=== PATIENT | male | born 1955 | race American Indian/Alaskan Native ===

== ENCOUNTER 2018-05-23 09:06 | Emergency (ER) | payer OTHER ==
--- NOTE | 2018-05-23 09:41 | Emergency Department Report ---
Blank Doc - Documentation Documentation: Patient is a 62-year-old black male who states for the past week he is having epigastric discomfort radiating into the chest. Patient states is present in the daytime much worse at night when he is laying flat. Patient states there is some mild shortness of breath and pain when he takes deep breaths. Patient denies any cough, congestion exertional component. Physical exam patient has some mild epigastric discomfort on palpation lungs clear to auscultation heart tones are within normal limits. EKG has been performed which appears normal chest x-ray and a d-dimer will be ordered since the patient states there is a pleuritic component. Patient be reassessed.
--- NOTE | 2018-05-23 09:54 | Emergency Department Report ---
HPI - General Chief Complaint: Chest Pain Time Seen by Provider: 05/23/18 09:33 - HPI HPI: Patient is a 62-year-old black male who states for the past week he is having epigastric discomfort radiating into the chest. Patient states is present in the daytime much worse at night when he is laying flat. Patient states there is some mild shortness of breath and pain when he takes deep breaths. Patient denies any cough, congestion exertional component. Pain is 6 out of 10 and worse with inspiration. Reports pain as burning and tight. No medication taken for pain. Patient denies any history of DVT or pulmonary embolism. Patient denies any nausea or vomiting. Denies any cough. Denies any recent travel by airplane or car from [facility] in 3 hours. He reports he has hiccups. Denies any back pain. Patient denies any history of heart problems. He did not take any pain medication prior to coming to the hospital. Pain is exacerbated by breathing in and and it is intermittent. Denies any fever or chills. Physical exam patient has some mild epigastric discomfort on palpation lungs clear to auscultation heart tones are within normal limits. EKG has been performed which appears normal chest x-ray and a d-dimer will be ordered since the patient states there is a pleuritic component. Patient be reassessed. ED Past Medical Hx - Past Medical History Previous Medical History?: No Hx Congestive Heart Failure: No Hx Diabetes: No Hx Asthma: No Hx COPD: No - Surgical History Past Surgical History?: No - Family History Family history: hypertension - Social History Smoking Status: Never Smoker Substance Use Type: None - Medications Home Medications: Home Medications Medication Instructions Recorded Confirmed Last Taken Type Warfarin [Coumadin] 7.5 mg PO QDAY #30 tablet 10/17/15 Unknown Rx Pantoprazole [Protonix TAB] 40 mg PO BID #60 tablet 05/23/18 Unknown Rx Sucralfate [Carafate] 1 gm PO ACHS 30 Days tablet 05/23/18 Unknown Rx ED Review of Systems ROS: Stated complaint: CHEST PAIN Other details as noted in HPI Constitutional: denies: chills, fever Eyes: denies: eye pain, eye discharge ENT: other (hiccups). denies: ear pain, throat pain, congestion Respiratory: shortness of breath, SOB with exertion, SOB at rest, other ( positive pickup's). denies: cough, orthopnea, stridor, wheezing Cardiovascular: chest pain (epigastric pain), other (pain with taking a deep breath). denies: palpitations, dyspnea on exertion, orthopnea, edema, syncope, paroxysmal nocturnal dyspnea Gastrointestinal: abdominal pain (epigastric pain radiating into his chest). denies: nausea, vomiting, diarrhea, hematemesis, melena, hematochezia Genitourinary: denies: urgency, dysuria, hematuria Musculoskeletal: denies: back pain, joint swelling, arthralgia, myalgia Skin: denies: rash, lesions Neurological: denies: headache, weakness, numbness, paresthesias, confusion, abnormal gait, vertigo Psychiatric: as per HPI, anxiety Physical Exam - Physical Exam Vital Signs: Vital Signs 05/23/18 09:09 Temperature 98.6 F Pulse Rate 85 Respiratory 18 Rate Blood Pressure 137/85 O2 Sat by Pulse 95 Oximetry General: This is a 62-year-old male well-nourished follow-up in no acute distress. Physical Exam: Head: Normocephalic atraumatic. Scalp examination and normal. Nontender to palpate. No abrasion, contusion or hematoma noted. Mouth: Oral mucosa moist, tongue is normal, uvula is midline, no [employer] or drooling , oral airways patent and uvula is midline. Neck: No breathing or stridor. Supple, no tracheal deviation, no lymphadenopathy and full range of motion Ears: Bilateral TMs pearly mota and bilateral EAC normal exam. Nose: Nasal mucosa without any erythema or swelling or drainage. Bilateral frontal and mastoid sinuses nontender to palpate. Nasal septum normal and nontender to palpate Lungs: Clear to auscultate bilaterally, no rhonchi wheezes or rales. No work of breathing and no use of accessory muscle . No chest wall tenderness Cardiovascular: S1, S2. Regular rate and rhythm. Negative murmur. Capillary refill is less than 3 seconds. Abdomen: Mild tenderness to epigastric area otherwise normal. No bowel sounds throughout abdomen. No guarding or rebound tenderness. Negative Larson's sign. Eyes: Bilateral pupils equal and reactive to light, conjunctival injection or icterus. Bilateral EOM intact and normal accommodation. Lids are normal. She has swelling below her lower lids that is not erythema and nontender to palpate. No induration and no sign of cellulitis. Skin: Clean dry and intact, no rash or lesions. Extremity: No cce. + 2 pulses in all extremities, no neurovascular compromise Mood: Normal mood and behavior ED Course Vital Signs 05/23/18 09:09 Temperature 98.6 F Pulse Rate 85 Respiratory 18 Rate Blood Pressure 137/85 O2 Sat by Pulse 95 Oximetry - Reevaluation(s) Reevaluation #1: 05/23/18 15:33 Patient stable throughout ED stay. 05/25/18 00:04 Reevaluation #2: 05/23/18 15:42 Patient given maalox 30 cc, lidocaine 15cc and pedcid 20 mg po for gastric reflux ED Medical Decision Making - Lab Data Result diagrams: 05/23/18 12:17 Lab Results 05/23/18 05/23/18 Range/Units 10:05 12:17 D-Dimer 2669.20 H (0-234) ng/mlDDU Sodium 138 (137-145) mmol/L Potassium 4.2 (3.6-5.0) mmol/L Chloride 97.0 L (98-107) mmol/L Carbon Dioxide 28 (22-30) mmol/L Anion Gap 17 mmol/L BUN 11 (9-20) mg/dL Creatinine 1.0 (0.8-1.5) mg/dL Estimated GFR > 60 ml/min BUN/Creatinine Ratio 11 % Glucose 150 H (75-100) mg/dL Calcium 9.1 (8.4-10.2) mg/dL Total Bilirubin 0.40 (0.1-1.2) mg/dL AST 29 (5-40) units/L ALT 19 (7-56) units/L Alkaline Phosphatase 40 (35-129) units/L Total Protein 7.7 (6.3-8.2) g/dL Albumin 4.0 (3.9-5) g/dL Albumin/Globulin Ratio 1.1 % - EKG Data -: EKG Interpreted by Me (Dr. Finney) EKG shows normal: sinus rhythm Rate: normal (73 beats per minutes) - EKG Data Interpretation: normal EKG - Radiology Data Radiology results: report reviewed Patient had CTA chest than an chest x-ray two-view which was dictated by radiologist and report reviewed by myself. Please see report for detailed below. Patient: SHAQUILLE HARE MR#: [id number] : 1955 Acct:[id number] Age/Sex: 62 / M ADM Date: 05/23/18 Loc: ED Attending Dr: Ordering Physician: CASPER FINNEY MD Date of Service: 05/23/18 Procedure(s): CT angio chest Accession Number(s): [id number] cc: CASPER FINNEY MD FINAL REPORT EXAM: CT ANGIO CHEST HISTORY: chest pain with elevated ddimer COMPARISON: CT angiograph of the chest performed on 10/06/2015 TECHNIQUE: Multiple contiguous axial images were obtained from the thoracic inlet to the upper abdomen after administration of IV contrast. Reformatted sagittal and coronal images were available for review. FINDINGS: Medical devices: None. Thyroid: Normal. Lymph nodes: No significant mediastinal, hilar, or axillary lymphadenopathy. Vasculature: No filling defect in the pulmonary artery to suggest pulmonary embolism. Normal caliber of the thoracic aorta. Conventional branching pattern of the aortic arch. Heart: Normal heart size. Other mediastinal structures: Moderate hiatal hernia. Lung parenchyma: Minimal dependent atelectasis at the bilateral lung bases. Airways: Patent. No bronchiectasis. Pleura: Small bilateral pleural effusions. Chest wall and spine: No suspicious osseous lesions. No acute fracture or dislocation. Upper Abdomen: Normal. IMPRESSION: 1. No evidence of pulmonary embolism. 2. Small bilateral pleural effusions with associated atelectasis at the bilateral lung bases. 3. Moderate hiatal hernia, unchanged since the previous study. Transcribed By: JANEE Dictated By: PATRICK MARTINEZ MD Electronically Authenticated By: PATRICK MARTINEZ MD Signed Date/Time: 05/23/18 1424 Findings [facility] [address] [place] [address] XRay Report Signed Patient: SHAQUILLE HARE MR#: [id number] : 1955 Acct:[id number] Age/Sex: 62 / M ADM Date: 05/23/18 Loc: ED Attending Dr: Ordering Physician: CASPER FINNEY MD Date of Service: 05/23/18 Procedure(s): XR chest routine 2V Accession Number(s): [id number] cc: CASPER FINNEY MD Fluoro Time In Minutes: FINAL REPORT EXAM: XR CHEST ROUTINE 2V HISTORY: chest and epigastric pain COMPARISON: None. TECHNIQUE: Frontal and lateral views of the chest FINDINGS: The cardiomediastinal silhouette is normal in appearance. There is blunting of the bilateral costophrenic angles. No focal consolidation. No pneumothorax. No acute bony or soft tissue abnormality. IMPRESSION: Blunting of the bilateral costophrenic angles that may represent trace pleural effusions. Transcribed By: JANEE Dictated By: PATRICK MARTINEZ MD Electronically Authenticated By: PATRICK MARTINEZ MD Signed Date/Time: 05/23/181057 DD/ 57 TD/TT: 05/23/181057 DD/ 23 TD/TT: 05/23/181423 - Medical Decision Making This is a 62-year-old male patient was evidenced emergency room report in epigastric pain radiating and not his chest is worse when he lays down at night. He reports a cup with some episodes of shortness of breath with or without exertion. Patient did not report any history of heart disease or acid reflux. He denies any cough, fever or chills. Denies any back pain and denies any history of DVT or PE. Patient is here to be evaluated. I reviewed patient previous chart and patient was seen by attending physician in the emergency room with similar complaints and he had extensive workup to include CT chest which showed no PE. He also had chest x-ray which was stable and on his CTA chest and chest x-rayed showed mild diarrheal hernia. He was seen by GI while in hospital at the time and he had gastric study done and it showed severe acid reflux. Patient was placed on Sulucrate and Protonix but he said he took it for a while and did not take it anymore. Patient also had reflection of chart where he was on Coumadin which she was placed on on 10/17/2015 and in review of his charts. He was admitted in the hospital and had MAHAMED, CTA of the chest, chest x-ray, CTA of the abdomen and pelvis with IV contrast and gastric emptying studies done at this time. 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 Patient was seen by Dr. Lee screen and orders place. Patient had lab work done which were within normal limits to include his BUN and creatinine. D- dimer was elevated therefore patient had CT angios of the chest which showed no evidence of pulmonary embolism, small bilateral pleural effusions with associated atelectasis , bilateral lung bases and moderate hiatal hernia that is unchanged since study from 2015. Chest x-ray was also done and initial blunting of the bilateral costal phrenic angle that may represent trace pleural effusion. CT and x-ray was dictated by radiologist report reviewed by myself. I communicated lab reports and CT next reports patient. I also explained to him that he had a past history of severe acid reflux with hiatal hernia and it placed him on Protonix and another antacid and he did not continue to take this and it seems this why he is having epigastric abdominal discomfort that radiated into his chest. Patient was given Maalox 30 mL and lidocaine 15 mL in emergency room for relief of pain. I discussed findings with Dr. Taylor Finney along with his past admission with similar findings and findings for thrombosis and is aorta and he was treated with Coumadin. Patient is no longer on Coumadin. Physical exam done and patient and please refer to exam section for details. His chest, lung and abdominal exam were normal except he has mild tenderness to abdominal epigastric area. Patient remained stable throughout ED course. Assessment/plan Epigastric abdominal pain radiating to the chest-CTA negative for thrombosis, positive for mild bilateral pleural effusion and moderate hiatal hernia which is chronic. Patient was diagnosed while he was in the hospital in 2014 with severe gastric reflux and was placed on antacid which he stopped taken. CMP is normal and d-dimer was elevated patient worked up for PE and CT of the chest negative for PE but patient was previously on Coumadin for aortic thrombosis. Hiatal hernia with acid reflux-patient started back on Sulucrate and Protonix. He was given lidocaine 15 mL and Maalox 30 mL by mouth which relieved his discomfort. 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 I discussed with him that he needs to continue to take his antacid medication because he has severe gastric reflux which could make him feel like he is having a heart attack and also make him feel shortness of breath. He voiced understanding. Condition discharged home in stable condition with prescription for Sulucrate and Protonix. Vital signs are stable he is afebrile and he said he is feeling better. He knows he needs to follow-up with multiple referrals that was given to him. 1. No evidence of pulmonary embolism. 2. Small bilateral pleural effusions with associated atelectasis at the bilateral lung bases. 3. Moderate hiatal hernia, unchanged since the previous study. Blunting of the bilateral costophrenic angles that may represent trace pleural effusions. - Differential Diagnosis PE, ACS, PNA, mass benign versus malignant, viral infection, GERD Critical care attestation.: If time is entered above; I have spent that time in minutes in the direct care of this critically ill patient, excluding procedure time. ED Disposition Clinical Impression: Hiatal hernia with GERD, Epigastric abdominal pain Disposition: TO HOME OR SELFCARE Is pt being admited?: No Does the pt Need Aspirin: No Condition: Stable Instructions: Hiatal Hernia (ED), Diet for Ulcers and Gastritis (ED), Gastroesophageal Reflux Disease (ED) Additional Instructions: Please follow up with batter mixer as discussed. Follow-up with primary care physician and if he did not have when he can follow- up with [facility] as discussed. Pain medication for acid reflux If his symptoms worsens, please return to emergency room. Prescriptions: Pantoprazole [Protonix TAB] 40 mg PO BID #60 tablet Sucralfate [Carafate] 1 gm PO ACHS 30 Days tablet Referrals: KOLBY NOBLE MD [Primary Care Provider] - 2-3 Days [facility] [Provider Group] - 05/26/18 GRETTA HALEY MD [Staff Physician] - 2-3 Days Forms: Work/School Release Form(ED)
--- NOTE | 2018-05-23 11:03 | XRay Report ---
FINAL REPORT EXAM: XR CHEST ROUTINE 2V HISTORY: chest and epigastric pain COMPARISON: None. TECHNIQUE: Frontal and lateral views of the chest FINDINGS: The cardiomediastinal silhouette is normal in appearance. There is blunting of the bilateral costophrenic angles. No focal consolidation. No pneumothorax. No acute bony or soft tissue abnormality. IMPRESSION: Blunting of the bilateral costophrenic angles that may represent trace pleural effusions.
[2018-05-23 13:24] LABS: Alanine Aminotransferase 19 units/L (7-56); BUN/Creatinine Ratio 11; Blood Urea Nitrogen 11 mg/dL (9-20); Calcium 9.1 mg/dL (8.4-10.2); Hemolysis Index 15
--- NOTE | 2018-05-23 14:30 | Cat Scan Report ---
FINAL REPORT EXAM: CT ANGIO CHEST HISTORY: chest pain with elevated ddimer COMPARISON: CT angiograph of the chest performed on 10/06/2015 TECHNIQUE: Multiple contiguous axial images were obtained from the thoracic inlet to the upper abdomen after administration of IV contrast. Reformatted sagittal and coronal images were available for review. FINDINGS: Medical devices: None. Thyroid: Normal. Lymph nodes: No significant mediastinal, hilar, or axillary lymphadenopathy. Vasculature: No filling defect in the pulmonary artery to suggest pulmonary embolism. Normal caliber of the thoracic aorta. Conventional branching pattern of the aortic arch. Heart: Normal heart size. Other mediastinal structures: Moderate hiatal hernia. Lung parenchyma: Minimal dependent atelectasis at the bilateral lung bases. Airways: Patent. No bronchiectasis. Pleura: Small bilateral pleural effusions. Chest wall and spine: No suspicious osseous lesions. No acute fracture or dislocation. Upper Abdomen: Normal. IMPRESSION: 1. No evidence of pulmonary embolism. 2. Small bilateral pleural effusions with associated atelectasis at the bilateral lung bases. 3. Moderate hiatal hernia, unchanged since the previous study.
[2018-05-23] MEDS ORDERED: PEPCID PO ONE (15:41)
[2018-05-23] MEDS ORDERED: ALUM-MAG HYDROX-SIMETH 200-200-20MG/5ML PO ONE (15:41)
[2018-05-23] MEDS ORDERED: LIDOCAINE VISCOUS 2% PO ONE (15:41)
[2018-05-23 16:03] VITALS: BP 133/93
== END 2018-05-23 16:32 | disposition home or self-care (01) ==
LOC: ED 09:06
DX: K44.9 Diaphragmatic hernia without obstruction or gangrene (principal); K21.9 Gastro-esophageal reflux disease without esophagitis
CPT/HCPCS: 36415; 71046; 71275; 80053; 85379; 93005; 93010; 99284; Q9967

== ENCOUNTER 2019-04-18 08:21 | Inpatient (IN) | payer MEDICARE, OTHER ==
[2019-04-18 09:58] LABS: Basophils % (Auto) 0.2 % (0.0-1.8); Eosinophils % (Auto) 0.1 % (0.0-4.3); Hematocrit 41.1 % (35.5-45.6); Hemoglobin 14.2 gm/dl (11.8-15.2); Lymphocytes # (Auto) 0.6 K/mm3 (1.2-5.4); Lymphocytes % (Auto) 9.8 % (13.4-35.0); Mean Corpuscular HGB Conc 35 % (32-34); Mean Corpuscular Volume 90 fl (84-94); Monocytes # (Auto) 0.6 K/mm3 (0.0-0.8); Monocytes % (Auto) 10.9 % (0.0-7.3); Platelet Count 215 K/mm3 (140-440); Red Blood Count 4.58 M/mm3 (3.65-5.03); Red Cell Distribution Width 13.5 % (13.2-15.2)
[2019-04-18 10:11] LABS: INR 1.06 (0.87-1.13); Partial Thromboplastin Time 26.1 Sec. (24.2-36.6)
[2019-04-18 10:23] LABS: Alanine Aminotransferase 27 units/L (7-56); Albumin 4.5 g/dL (3.9-5); BUN/Creatinine Ratio 16; Blood Urea Nitrogen 22 mg/dL (9-20); Calcium 9.1 mg/dL (8.4-10.2); Hemolysis Index 1
--- NOTE | 2019-04-18 12:02 | Vascular Lab Report ---
PROCEDURE: VL VENOUS DUPLEX LE BILAT TECHNIQUE: Grayscale, color flow and spectral waveform images were obtained of bilateral lower extre mities. HISTORY: pain COMPARISON: None FINDINGS: There is no deep venous thrombosis seen in the left or right lower extremity. Flow is demonstrated by color flow and spectral waveform imaging. There is appropriate wall compression and augmentation. There is also superficial venous thrombus seen. IMPRESSION: There is no evidence for DVT in either right or left lower extremity. This document is electronically signed by Bronwyn Gomez MD., April 18 2019 11:59:48 AM ET
[2019-04-18] MEDS ORDERED: HEPARIN 10,000 UNITS/10 ML IV ONE ×2 (12:07)
[2019-04-18] MEDS ORDERED: BABY ASPIRIN PO ONE (12:09)
--- NOTE | 2019-04-18 12:10 | Emergency Department Report ---
ED Extremity Problem HPI - General Chief complaint: Extremity Injury, Lower Stated complaint: LT SIDE CRAMPING Time Seen by Provider: 04/18/19 08:53 Source: patient Mode of arrival: Ambulatory Limitations: No Limitations - History of Present Illness Initial comments: Patient reports approximately 1 week of episodic leg cramping. Reports today whil eat work he felt numbness in the bottom of his right toes and decided to come in for evaluation. Denies prior. Denies trauma. Denies provocation/palliation. -: Gradual, week(s) (1 approximately) Location: bilateral lower extremity History of Same: No -: Yes myalgia, No fever, No associated dyspnea, No associated chest pain Radiation: none Severity scale (0 -10): 8 Quality: other (cramping) Consistency: intermittent Improves with: nothing Worsens with: nothing Associated Symptoms: myalgias. denies: chest pain, shortness of breath, fever, arthralgias, rash - Related Data Previous Rx's Medication Instructions Recorded Last Taken Type Warfarin [Coumadin] 7.5 mg PO QDAY #30 tablet 10/17/15 Unknown Rx Pantoprazole [Protonix TAB] 40 mg PO BID #60 tablet 05/23/18 Unknown Rx Sucralfate [Carafate] 1 gm PO ACHS 30 Days tablet 05/23/18 Unknown Rx Allergies Allergy/AdvReac Type Severity Reaction Status Date / Time No Known Allergies Allergy Verified 05/23/18 09:09 ED Review of Systems ROS: Stated complaint: LT SIDE CRAMPING Other details as noted in HPI Other: GENERAL: No weight change, fatigue, weakness, fever, chills, or night sweats SKIN: No changes in skin or hair, no itching, no rashes, no jaundice HEAD: No trauma, headache, or visual changes EYES: No blurriness, tearing, itching, acute visual loss, conjunctival discoloration, or scleral icterus EARS: No hearing loss, tinnitus, vertigo, or earache NOSE: No rhinorrhea, stuffiness, sneezing, itching, or epistaxis MOUTH: No bleeding gums, hoarseness, sore throat, or swelling CARDIAC: No new murmur, chest pain, palpitations, dyspnea on exertion, orthopnea, PND, or edema RESPIRATORY: No shortness of breath, wheeze, cough, sputum production, hemoptysis, pneumonia, asthma, bronchitis, or emphysema GI: No change in appetite, nausea, vomiting, dysphagia, change in bowel frequen cy, diarrhea, constipation, bleeding, hematemesis, melena, hematochezia, or abdominal pain URINARY: No frequency, urgency, polyuria, dysuria, hematuria, or incontinence MUSCULOSKELETAL: Bilateral leg cramping. No muscle weakness, joint stiffness, decrease in range of motion, redness, swelling NEUROLOGIC: Numbess bottom of right toes. No tingling, tremors, weakness, paralysis, seizures HEMATOLOGIC: No anemia, easy bruising, bleeding, petechiae, or purpura ENDOCRINE: No hot or cold intolerance, sweating, polyuria, polydipsia or, polyphagia no thyroid problems PSYCHIATRIC: No change in mood, no anxiety, no depression ED Past Medical Hx - Past Medical History Previous Medical History?: No Hx Congestive Heart Failure: No Hx Diabetes: No Hx Asthma: No Hx COPD: No - Surgical History Past Surgical History?: No - Social History Smoking Status: Never Smoker Substance Use Type: Alcohol - Medications Home Medications: Home Medications Medication Instructions Recorded Confirmed Last Taken Type Warfarin [Coumadin] 7.5 mg PO QDAY #30 tablet 10/17/15 Unknown Rx Pantoprazole [Protonix TAB] 40 mg PO BID #60 tablet 05/23/18 Unknown Rx Sucralfate [Carafate] 1 gm PO ACHS 30 Days tablet 05/23/18 Unknown Rx ED Physical Exam - General Limitations: No Limitations - Other Other exam information: GENERAL: Patient in no acute distress HEAD: Normocephalic, atraumatic EYES: PERRLA, EOM intact, no scleral icterus, no papilledema, no conjunctival hemorrhage, visual mchugh and acuity wnl, NOSE: No tenderness, discharge, sinus tenderness MOUTH: No erythema, bleeding, exudate HEART: Regular rate and rhythm, no murmur, S1-S2 are auscultated, pulses minor diminished right PT and DP LUNGS: No wheezing, rales, rhonchi, bilateral breath sounds ABDOMEN: Normal bowel sounds, no tenderness, no rebound, no guarding, no masses, no CVA tenderness MUSCULOSKELETAL: Normal joint range of motion, no redness, no swelling, no tenderness NEUROLOGIC: GCS 15, Alert and Oriented x3, Cranial nerves intact, normal sensation, normal strength, normal gait, no cerebellar deficit, NIHSS 0, GCS 15 PSYCHIATRIC: No homicidal or suicidal ideation, no anxiety, no depression, no hallucinations SKIN: Skin is warm and dry, no wounds, no rashes ED Course Vital Signs 04/18/19 08:28 Temperature 97.9 F Pulse Rate 98 H Respiratory 16 Rate Blood Pressure 115/74 [Right] O2 Sat by Pulse 95 Oximetry ED Medical Decision Making - Lab Data Result diagrams: 04/18/19 09:44 04/18/19 09:44 Laboratory Results - last 24 hr 04/18/19 04/18/19 04/18/19 09:44 09:44 09:44 WBC 5.6 RBC 4.58 Hgb 14.2 Hct 41.1 MCV 90 MCH 31 MCHC 35 H RDW 13.5 Plt Count 215 Lymph % (Auto) 9.8 L [place] % (Auto) 10.9 H Eos % (Auto) 0.1 Baso % (Auto) 0.2 Lymph # 0.6 L [place] # 0.6 Eos # 0.0 Baso # 0.0 Seg Neutrophils % 79.0 H Seg Neutrophils # 4.5 PT 13.5 INR 1.06 APTT 26.1 Sodium 139 Potassium 4.3 Chloride 99.1 Carbon Dioxide 27 Anion Gap 17 BUN 22 H Creatinine 1.4 Estimated GFR > 60 BUN/Creatinine Ratio 16 Glucose 123 H Calcium 9.1 Total Bilirubin 0.50 AST 39 ALT 27 Alkaline Phosphatase 40 Total Creatine Kinase Total Protein 8.4 H Albumin 4.5 Albumin/Globulin Ratio 1.2 04/18/19 09:44 WBC RBC Hgb Hct MCV MCH MCHC RDW Plt Count Lymph % (Auto) [place] % (Auto) Eos % (Auto) Baso % (Auto) Lymph # [place] # Eos # Baso # Seg Neutrophils % Seg Neutrophils # PT INR APTT Sodium Potassium Chloride Carbon Dioxide Anion Gap BUN Creatinine Estimated GFR BUN/Creatinine Ratio Glucose Calcium Total Bilirubin AST ALT Alkaline Phosphatase Total Creatine Kinase 344 H Total Protein Albumin Albumin/Globulin Ratio - Radiology Data Radiology results: report reviewed Radiology call concerning for right popliteal and DP arterial occlusion. At 0019 Dr. Ambrosio vascular surgery call back updated with results. Agrees with heparin gtt. Will come to evaluate. Asked if patient has a hx of A. Fib. Patient comfortable and reports no history of irregular heart beat or A. fib. Reports he has had a hx of leg clots. upon chart review patient had a rx for Coumadin but stopped taking it "a while ago" because he felt better. Dr. Ambrosio agrees with admission to medicine. Dr Cabrera updated and accepts admission. Critical Care Time: Yes Critical care time in (mins) excluding proc time.: 35 Critical care attestation.: If time is entered above; I have spent that time in minutes in the direct care of this critically ill patient, excluding procedure time. ED Disposition Clinical Impression: Arterial occlusion, lower extremity Disposition: [id number] OP ADMIT IP TO THIS HOSP Is pt being admited?: Yes Condition: Serious Referrals: BRENT NICKERSON MD [Primary Care Provider] - 3-5 Days Time of Disposition: 12:38
--- NOTE | 2019-04-18 12:11 | Vascular Lab Report ---
PROCEDURE: VL ARTERIAL DUPLEX LE BILAT TECHNIQUE: Arterial duplex Doppler ultrasound of lower extremities. Grayscale, color flow and spectr al waveform images were obtained. HISTORY: Pain COMPARISON: None FINDINGS: There is arterial patency and triphasic flow from distal external iliac artery to the distal superfic ial femoral artery. There is some nonocclusive thrombus seen in the distal right popliteal artery. Th ere is monophasic flow in right posterior tibial artery and biphasic flow in the anterior tibial edwina ry. The right dorsalis pedis appears occluded. On the left there is phasic flow throughout the left lower extremity. No left-sided arterial thrombus seen. IMPRESSION: There is some nonocclusive thrombus and/or soft plaque in the distal right popliteal edwina ry. There is occlusion of the right dorsalis pedis artery. This document is electronically signed by Bronwyn Gomez MD., April 18 2019 12:10:04 PM ET
--- NOTE | 2019-04-18 12:28 | History and Physical Report ---
History of Present Illness Chief complaint: My leg is tingling, and cramping History of present illness: 63 YO Male with Aortic Thrombus with Renal Embolization noncompliant with therapeutic anticoagulation, GERD presents to ED for evaluation. Pt states that he has experienced numbness and tingling to his right foot today. Pt also reports concomitant weakness, muscle cramping in his right leg and foot, and inability to bear weight on his right leg with worsening symptoms after reclining his leg or dangling his leg off the edge of the bed, and somewhat relieved with standing. Pt transported to [facility] via private vehicle. Pt seen and evaluated in ED and found to have RLE arterial insufficiency with rest pain. Pt denies fever, chills, CP, palpitations, NVD, Trauma, BRBPR, Productive cough, skin rash, or recent ill contacts. Pt initiated on Heparin drip after hypercoagulable panel ordered. Pt admitted to Surgical floor. Prior admission on 10/04/15 reviewed. No medication listed for reconciliation at time of admission. Past History Past Medical History: other (Aortic thrombus with Embolization) Past Surgical History: No surgical history, Other (reviewed) Social history: . denies: alcohol abuse, prescription drug abuse Family history: hypertension Medications and Allergies Allergies Allergy/AdvReac Type Severity Reaction Status Date / Time No Known Allergies Allergy Verified 05/23/18 09:09 Home Medications Medication Instructions Recorded Confirmed Last Taken Type Warfarin [Coumadin] 7.5 mg PO QDAY #30 tablet 10/17/15 Unknown Rx Pantoprazole [Protonix TAB] 40 mg PO BID #60 tablet 05/23/18 Unknown Rx Sucralfate [Carafate] 1 gm PO ACHS 30 Days tablet 05/23/18 Unknown Rx Active Meds: Active Medications Heparin Protocol (Heparin No Bolus) 1 each IV ONCE ONE Stop: 04/18/19 13:01 Heparin Sodium/Sodium Chloride (Heparin/ 0.45% Nacl-25,000 Unit/500 Ml) 25,000 unit in 500 mls @ 18 mls/hr IV TITR TALIA; Protocol Review of Systems Constitutional: no weight loss, no weight gain, no fever, no chills Ears, nose, mouth and throat: no ear pain, no ear discharge, no tinnitis, no decreased hearing, no nose pain Cardiovascular: no chest pain, no orthopnea, no palpitations, no rapid/irregular heart beat, no edema, no syncope Respiratory: no cough, no cough with sputum, no excessive sputum, no hemoptysis, no shortness of breath Gastrointestinal: no abdominal pain, no nausea, no vomiting, no constipation Genitourinary Male: no hematuria, no flank pain, no discharge, no urinary frequency Rectal: no pain, no incontinence, no bleeding Musculoskeletal: no neck stiffness, no neck pain, no shooting arm pain, no arm numbness/tingling, no low back pain, no shooting leg pain Integumentary: no rash, no pruritis, no redness, no sores, no wounds Neurological: no transient paralysis, no paralysis, no weakness, no parathesias, no numbness, no tingling, no seizures, no syncope Psychiatric: no anxiety, no memory loss, no change in sleep habits, no sleep disturbances, no insomnia, no hypersomnia, no change in appetite Endocrine: no cold intolerance, no heat intolerance, no polyphagia, no excessive thirst, no polydipsia, no polyuria Hematologic/Lymphatic: no easy bruising, no easy bleeding, no lymphadenopathy, no lymphedema Allergic/Immunologic: no urticaria, no allergic rhinitis, no wheezing, no persistent infections, no anaphylaxis Exam - Constitutional Vitals: Temp Pulse Resp BP Pulse Ox 97.9 F 98 H 16 115/74 95 04/18/19 08:28 04/18/19 08:28 04/18/19 08:28 04/18/19 08:28 04/18/19 08:28 General appearance: Present: mild distress, well-nourished - EENT Eyes: Present: PERRL ENT: hearing intact, clear oral mucosa - Neck Neck: Present: supple, normal ROM - Respiratory Respiratory effort: normal Respiratory: bilateral: CTA - Cardiovascular Heart Sounds: Present: S1 & S2. Absent: rub, click - Extremities Extremity abnormal: cold, pulses diminished, tenderness, other (RLE ischemia, pulses 1+ RLE, ) Peripheral Pulses: within normal limits - Abdominal General gastrointestinal: Present: soft, non-tender, non-distended, normal bowel sounds Male genitourinary: Present: normal - Integumentary Integumentary: Present: clear, warm, dry - Musculoskeletal Musculoskeletal: gait normal, strength equal bilaterally - Psychiatric Psychiatric: appropriate mood/affect, intact judgment & insight - Neurologic Neurologic: CNII-XII intact, moves all extremities Results - Labs CBC & Chem 7: 04/18/19 09:44 04/18/19 09:44 Labs: Abnormal lab results 04/18/19 04/18/19 04/18/19 Range/Units 09:44 09:44 09:44 MCHC 35 H (32-34) % Lymph % (Auto) 9.8 L (13.4-35.0) % [place] % (Auto) 10.9 H (0.0-7.3) % Lymph # 0.6 L (1.2-5.4) K/mm3 Seg Neutrophils % 79.0 H (40.0-70.0) % BUN 22 H (9-20) mg/dL Glucose 123 H (75-100) mg/dL Total Creatine Kinase 344 H (55-170) units/L Total Protein 8.4 H (6.3-8.2) g/dL Assessment and Plan - Patient Problems (1) Arterial occlusion, lower extremity Current Visit: Yes Status: Acute Plan to address problem: IR consulted in ED, Heprain Drip initiated in ED, Hypercoagulable panel, Pending CTA, May require transfer if obstruction not amenable to therapy as per IR team. 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 Pt discontinued therapeutic anticoagulation on his own without consulting a physician. (3) DVT prophylaxis Current Visit: No Status: Acute Plan to address problem: Therapeutic anticoagulation,
[2019-04-18] MEDS ORDERED: ZOFRAN IV PRN (12:36)
[2019-04-18] MEDS ORDERED: TYLENOL PO PRN (12:36)
[2019-04-18] MEDS ORDERED: SODIUM CHLORIDE FLUSH SYRINGE 10 ML IV PRN (12:36)
[2019-04-18] MEDS ORDERED: PROVENTIL IH PRN (12:36)
[2019-04-18] MEDS ORDERED: HEPARIN/ 0.45% NACL-25,000 UNIT/500 ML 25,000 UNIT/500 ML BAG IV SCH (13:00)
[2019-04-18 13:14] LABS: Hematocrit 40.6 % (35.5-45.6)
[2019-04-18 13:25] LABS: INR 1.02 (0.87-1.13)
[2019-04-18 13:26] LABS: Partial Thromboplastin Time 26.6 Sec. (24.2-36.6)
[2019-04-18] MEDS: PROTONIX PO SCH ×2 (14:19→21:12)
[2019-04-18] MEDS: PERCOCET 5/325 PO PRN (14:19)
--- NOTE | 2019-04-18 14:52 | Cat Scan Report ---
PROCEDURE: CT ANGIO CHEST TECHNIQUE: CT angiography of the chest, abdomen, pelvis with CTA runoff of the lower extremities. HISTORY: aortic thrombus w/ ischemia CTA c/a/p with runoff COMPARISON: None FINDINGS: There is no aortic dissection seen. There is no thoracic aortic thrombus seen. There are no abnormal pulmonary arterial filling defects seen to indicate acute pulmonary emboli. The lungs are clear. There is no pleural effusion seen. There is no pneumothorax seen. There is no abnormal mediastinal or hilar mass seen. Abdominal aorta is normal caliber. There is focal thrombus in the abdominal aorta just distal to MOISÉS origin. This is nonocclusive. The iliac arteries are patent without evidence of thrombus. Aortic branch vessels including celiac trunk/axis, renal arteries and MOISÉS appear patent without visua lized thrombus. The visualized liver, spleen, pancreas, adrenal glands demonstrate no significant abnormality. There is right renal scarring. There is mild left renal scarring. There is no evidence for intestinal obstruction. The appendix is normal. There is no abnormal fluid collection seen. There is no free intraperitoneal air. Bladder is unremarkable. Lower extremity runoff: Right lower extremity-some peripheral nonocclusive thrombus within the right popliteal artery. There is no flow in the right posterior tibial artery distal to the proximal segment. No anterior tibial ar olivia flow seen. Peroneal flow also not seen past the level of the mid calf. Left lower extremity there is a filling defect within the left popliteal artery. There is no signific ant flow seen within calf arteries. IMPRESSION: Focal nonocclusive thrombus in the distal aorta. Right lower extremity demonstrates some nonocclusive thrombus in the popliteal artery. Right anterior tibial artery not visualized and may be occluded. Right posterior tibial artery not visualized past the initial segment and may be occluded. No visualized flow in the right peroneal artery distal to mi d calf. Uncertain whether this is occlusion or related to phase of enhancement. Filling defect in the left popliteal artery is consistent with thrombus. No flow seen into calf arter ies. This suggests distal popliteal arterial occlusion. Findings were discussed with Dr. Marie on 04/18/2019 at 2:40 PM EST. This document is electronically signed by Bronwyn Gomez MD., April 18 2019 02:50:02 PM ET
--- NOTE | 2019-04-18 16:01 | Consultation ---
History of Present Illness - Reason for Consult Consult date: 04/18/19 R ischemia - History of Present Illness 63 YO Male with Aortic Thrombus with Renal Embolization noncompliant with therapeutic anticoagulation, GERD presents to ED for evaluation. Pt states that he has experienced numbness and tingling to his right foot today. Pt also reports concomitant weakness, muscle cramping in his right leg and foot, and inability to bear weight on his right leg with worsening symptoms after reclini ng his leg or dangling his leg off the edge of the bed, and somewhat relieved with standing. Pt transported to [facility] via private vehicle. Pt seen and evaluated in ED and found to have RLE arterial insufficiency with rest pain. Pt denies fever, chills, CP, palpitations, NVD, Trauma, BRBPR, Productive cough, skin rash, or recent ill contacts. Pt initiated on Heparin drip after hypercoagulable panel ordered. Pt admitted to Surgical floor. Prior admission on 10/04/15 reviewed. No medication listed for reconciliation at time of admission. Vascular was consulted for right foot evaluation. Arterial Doppler demonstrates occlusion of the right dorsalis pedis and proximal posterior tibial. There is also some thrombus in his popliteal artery. The left lower extremity is without issue. He has nonpalpable right pedal pulses and probable left dorsalis pedis and posterior tibial artery. CTA was then ordered for history of aortic thrombus demonstrating another thrombus in his distal aorta. Past History Past Medical History: other (Aortic thrombus with Embolization) Past Surgical History: No surgical history, Other (reviewed) Social history: . denies: alcohol abuse, prescription drug abuse Family history: hypertension Medications and Allergies Allergies Allergy/AdvReac Type Severity Reaction Status Date / Time No Known Allergies Allergy Verified 05/23/18 09:09 Home Medications Medication Instructions Recorded Confirmed Last Taken Type Warfarin [Coumadin] 7.5 mg PO QDAY #30 tablet 10/17/15 Unknown Rx Pantoprazole [Protonix TAB] 40 mg PO BID #60 tablet 05/23/18 Unknown Rx Sucralfate [Carafate] 1 gm PO ACHS 30 Days tablet 05/23/18 Unknown Rx Active Meds: Active Medications Acetaminophen (Tylenol) 650 mg PO Q4H PRN PRN Reason: Pain MILD(1-3)/Fever >100.5/CONCEPCION Albuterol (Proventil) 2.5 mg IH Q4H PRN PRN Reason: Shortness Of Breath Heparin Sodium/Sodium Chloride (Heparin/ 0.45% Nacl-25,000 Unit/500 Ml) 25,000 unit in 500 mls @ 18 mls/hr IV TITR TALIA; Protocol Last Admin: 04/18/19 13:00 Dose: 900 units/hr, 18 mls/hr Documented by: Ondansetron HCl (Zofran) 4 mg IV Q8H PRN PRN Reason: Nausea And Vomiting Oxycodone/Acetaminophen (Percocet 5/325) 1 tab PO Q6H PRN PRN Reason: Pain, Moderate (4-6) Last Admin: 04/18/19 14:19 Dose: 1 tab Documented by: Pantoprazole Sodium (Protonix) 40 mg PO BID TALIA Last Admin: 04/18/19 14:19 Dose: Not Given Documented by: Sodium Chloride (Sodium Chloride Flush Syringe 10 Ml) 10 ml IV BID TALIA Sodium Chloride (Sodium Chloride Flush Syringe 10 Ml) 10 ml IV PRN PRN PRN Reason: LINE FLUSH Sucralfate (Carafate) 1 gm PO ACHS [facility] Review of Systems All systems: negative (see HPI) Exam - Constitutional Vitals: Temp Pulse Resp BP Pulse Ox 97.9 F 74 17 124/79 100 04/18/19 08:28 04/18/19 15:45 04/18/19 15:45 04/18/19 15:45 04/18/19 15:45 General appearance: Present: no acute distress - EENT Eyes: Present: EOM intact ENT: hearing intact - Respiratory Respiratory effort: normal - Extremities Extremities: normal color, abnormal (right leg slightly cooler than left, nonpalpable right pedal pulses, palpable left pedal pulses) - Psychiatric Psychiatric: appropriate mood/affect, cooperative Results - Labs CBC & Chem 7: 04/18/19 12:49 04/18/19 09:44 Labs: Abnormal lab results 04/18/19 04/18/19 04/18/19 Range/Units 09:44 09:44 09:44 MCHC 35 H (32-34) % Lymph % (Auto) 9.8 L (13.4-35.0) % [place] % (Auto) 10.9 H (0.0-7.3) % Lymph # 0.6 L (1.2-5.4) K/mm3 Seg Neutrophils % 79.0 H (40.0-70.0) % BUN 22 H (9-20) mg/dL Glucose 123 H (75-100) mg/dL Total Creatine Kinase 344 H (55-170) units/L Total Protein 8.4 H (6.3-8.2) g/dL - Imaging and Cardiology CT scan - abdomen: report reviewed, image reviewed CT scan - chest: report reviewed, image reviewed CT scan - pelvis: report reviewed, image reviewed Venous US: report reviewed, image reviewed Assessment and Plan 63-year-old male with history of aortic thrombus 4 years ago was initiated on anticoagulation but stopped anticoagulation who now presents with a new aortic thrombus with part of it likely embolized down the right lower extremity. The patient's right foot has intermittent pain and numbness, but now the pain and numbness has resolved. Heparin initiated. There is an infrarenal aortic thrombus and right dorsalis pedis thrombus and probably thrombus in the right pr oximal posterior tibial artery. Nothing by mouth after midnight except meds with sips of water. Unfortunately, the aortic thrombus makes thrombolysis of the right lower extremity not possible due to risk of showering. Therefore, plan will be for endovascular aortic exclusion of the aortic thrombus, and popliteal artery right lower extremity open thrombectomy. I suspect there is some component of acute thrombus that has embolized on the right lower extremity, as 4 years ago the patient had palpable pedal pulses. Risks, benefits, and alternatives discussed. Patient will need to be anticoagulated for life afterwards. Cardiology will need to be consulted for risk stratification.
[2019-04-18] MEDS: CARAFATE PO SCH ×2 (16:30→21:12)
--- NOTE | 2019-04-18 17:12 | Consultation ---
History of Present Illness Consult date: 04/18/19 Consult reason: other (Known to have PVD,preop evalaution.) History of present illness: 64-year-old -[place] gentleman was having some numbness in the right foot since this morning and he could not go to work. And also is having cramps in the right leg. Patient was evaluated in the emergency room. Seen by Dr. Ambrosio ,intervention radiologist. Had a CT of the abdomen and ultrasound of the lower extent is were performed. This showed evidence of a thrombus in the aorta along with occluded, thrombotic right infra infrapopliteal vessels. Also was noted to show renal infarction. Patient was started on IV heparin. Patient had history of aortic thrombus in 2014 and was told to take warfarin at that time. Did not have follow-up. Since that time he did not take any medication. Patient does not see any physician in a while. Denies any chest pain or shortness of breath or palpitations. His main complaint was numbness in the right foot and also cramps in the right leg. No symptoms on the left leg. Denies any abdominal pain. Past History Past Medical History: other (Aortic thrombus with Embolization). denies: atrial fib Past Surgical History: No surgical history, Other (reviewed) Social history: , alcohol abuse (drinks one beer a day.), other (patient used to smoke but quit 2 years ago. He smoked less than half pack per day since is 19. 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 denies: prescription drug abuse, IV drug use (denies any drug abuse.) Family history: hypertension Medications and Allergies Allergies Allergy/AdvReac Type Severity Reaction Status Date / Time No Known Allergies Allergy Verified 05/23/18 09:09 Home Medications Medication Instructions Recorded Confirmed Last Taken Type Warfarin [Coumadin] 7.5 mg PO QDAY #30 tablet 10/17/15 Unknown Rx Pantoprazole [Protonix TAB] 40 mg PO BID #60 tablet 05/23/18 Unknown Rx Sucralfate [Carafate] 1 gm PO ACHS 30 Days tablet 05/23/18 Unknown Rx Active Meds: Active Medications Acetaminophen (Tylenol) 650 mg PO Q4H PRN PRN Reason: Pain MILD(1-3)/Fever >100.5/CONCEPCION Albuterol (Proventil) 2.5 mg IH Q4H PRN PRN Reason: Shortness Of Breath Heparin Sodium/Sodium Chloride (Heparin/ 0.45% Nacl-25,000 Unit/500 Ml) 25,000 unit in 500 mls @ 18 mls/hr IV TITR [facility]; Protocol Last Admin: 04/18/19 13:00 Dose: 900 units/hr, 18 mls/hr Documented by: Ondansetron HCl (Zofran) 4 mg IV Q8H PRN PRN Reason: Nausea And Vomiting Oxycodone/Acetaminophen (Percocet 5/325) 1 tab PO Q6H PRN PRN Reason: Pain, Moderate (4-6) Last Admin: 04/18/19 14:19 Dose: 1 tab Documented by: Pantoprazole Sodium (Protonix) 40 mg PO BID [facility] Last Admin: 04/18/19 14:19 Dose: Not Given Documented by: Sodium Chloride (Sodium Chloride Flush Syringe 10 Ml) 10 ml IV BID [facility] Sodium Chloride (Sodium Chloride Flush Syringe 10 Ml) 10 ml IV PRN PRN PRN Reason: LINE FLUSH Sucralfate (Carafate) 1 gm PO ACHS [facility] Review of Systems Constitutional: no weight loss Ears, nose, mouth and throat: no epistaxis Cardiovascular: no chest pain, no orthopnea, no palpitations, no dyspnea on exertion Respiratory: no cough Gastrointestinal: no abdominal pain, no nausea Genitourinary Male: no hematuria Integumentary: no rash Neurological: no head injury, no seizures Endocrine: no cold intolerance Hematologic/Lymphatic: no easy bruising Allergic/Immunologic: no urticaria Physical Examination Vital Signs Temp Pulse Resp BP Pulse Ox 97.9 F 98 H 16 115/74 95 04/18/19 08:28 04/18/19 08:28 04/18/19 08:28 04/18/19 08:28 04/18/19 08:28 General appearance: no acute distress HEENT: Positive: PERRL Neck: Positive: neck supple Cardiac: Positive: Reg Rate and Rhythm, S4. Negative: Audible Murmur Lungs: Positive: clear to auscultation Neuro: Positive: Grossly Intact Abdomen: Positive: Unremarkable Male genitourinary: Positive: deferred Skin: Positive: Clear Extremities: Present: Other (right foot has markedly decreased pulses, left foot>Pedal pulses are well felt.). Absent: edema Results 04/18/19 12:49 04/18/19 09:44 Cardiac Enzymes 04/18/19 Range/Units 09:44 AST 39 (5-40) units/L Coagulation 04/18/19 04/18/19 Range/Units 09:44 12:49 PT 13.5 13.1 (12.2-14.9) Sec. INR 1.06 1.02 (0.87-1.13) APTT 26.1 26.6 (24.2-36.6) Sec. CBC 04/18/19 04/18/19 Range/Units 09:44 12:49 WBC 5.6 (4.5-11.0) K/mm3 RBC 4.58 (3.65-5.03) M/mm3 Hgb 14.2 14.0 (11.8-15.2) gm/dl Hct 41.1 40.6 (35.5-45.6) % Plt Count 215 206 (140-440) K/mm3 Lymph # 0.6 L (1.2-5.4) K/mm3 [place] # 0.6 (0.0-0.8) K/mm3 Eos # 0.0 (0.0-0.4) K/mm3 Baso # 0.0 (0.0-0.1) K/mm3 Comprehensive Metabolic Panel 04/18/19 Range/Units 09:44 Sodium 139 (137-145) mmol/L Potassium 4.3 (3.6-5.0) mmol/L Chloride 99.1 (98-107) mmol/L Carbon Dioxide 27 (22-30) mmol/L BUN 22 H (9-20) mg/dL Creatinine 1.4 (0.8-1.5) mg/dL Glucose 123 H (75-100) mg/dL Calcium 9.1 (8.4-10.2) mg/dL AST 39 (5-40) units/L ALT 27 (7-56) units/L Alkaline Phosphatase 40 (35-129) units/L Total Protein 8.4 H (6.3-8.2) g/dL Albumin 4.5 (3.9-5) g/dL Assessment and Plan Patient admitted with right lower extremity arterial insufficiency with abdominal aortic thrombus and also thrombus in the right lower extremity arteries. Presently is having rest pain. Being managed with IV heparin. He apparently had abdominal aortic thrombus few years ago. Patient denied any cardiac history. Patient is not seeing any physician for a while and not taking any medication. 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 No cardiac symptoms at this point however considering he has significant peripheral vascular disease, would benefit from further evaluation with echocardiogram and pharmacologic stress testing to rule out any underlying coronary disease. Patient apparently has a history of hypertension. Patient's cardiac status appears to be stable. For risk stratification would get about testing. We will check the lipid profile and consider statin. 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
[2019-04-18 18:10] LABS: Chol/HDL Ratio 2.13 %
[2019-04-18] MEDS: SODIUM CHLORIDE FLUSH SYRINGE 10 ML IV SCH (21:13)
[2019-04-19 06:20] LABS: Basophils % (Auto) 0.4 % (0.0-1.8); Eosinophils # (Auto) 0.1 K/mm3 (0.0-0.4); Eosinophils % (Auto) 2.2 % (0.0-4.3); Hematocrit 39.6 % (35.5-45.6); Hemoglobin 13.8 gm/dl (11.8-15.2); Lymphocytes # (Auto) 0.9 K/mm3 (1.2-5.4); Lymphocytes % (Auto) 24.2 % (13.4-35.0); Mean Corpuscular HGB Conc 35 % (32-34); Mean Corpuscular Volume 90 fl (84-94); Monocytes # (Auto) 0.5 K/mm3 (0.0-0.8); Monocytes % (Auto) 11.9 % (0.0-7.3); Platelet Count 188 K/mm3 (140-440); Red Blood Count 4.39 M/mm3 (3.65-5.03); Red Cell Distribution Width 13.4 % (13.2-15.2)
[2019-04-19 06:48] LABS: Alanine Aminotransferase 21 units/L (7-56); BUN/Creatinine Ratio 13; Blood Urea Nitrogen 15 mg/dL (9-20); Calcium 8.8 mg/dL (8.4-10.2); Hemolysis Index 6
[2019-04-19] MEDS ORDERED: LEXISCAN IV ONE (07:02)
[2019-04-19] MEDS: CARAFATE PO SCH ×3 (07:41→21:21)
[2019-04-19 08:00] LABS: Bacteria,Urine 1+ /HPF (Negative); Bilirubin,Urine NEG (Negative); Blood,Urine SM (Negative); Color,Urine Yellow (Yellow); Mucus,Urine FEW /HPF; Urobilinogen,Urine < 2.0 mg/dL (<2.0)
[2019-04-19 08:10] LABS: Amphetamine Screen,Urine PRESUMPTIVE NEGATIVE; Benzodiazepines Screen,Urine PRESUMPTIVE NEGATIVE; Cannabinoid Screen,Urine PRESUMPTIVE NEGATIVE; Cocaine Screen,Urine PRESUMPTIVE NEGATIVE; Methadone Screen,Urine PRESUMPTIVE NEGATIVE; Opiate Screen,Urine PRESUMPTIVE NEGATIVE
[2019-04-19] MEDS ORDERED: NACL 0.9% 500 ML 500 ML IV NR (09:34)
[2019-04-19] MEDS ORDERED: PROTAMINE SULFATE ONE (09:57)
[2019-04-19] MEDS ORDERED: MARCAINE 0.5% INFILTRATI ONE (09:57)
[2019-04-19] MEDS ORDERED: VERSED IV NR (09:57)
[2019-04-19] MEDS ORDERED: HEPARIN 10,000 UNITS/10 ML ONE (09:58)
[2019-04-19] MEDS ORDERED: NACL 0.9% 1000 ML 2,000 ML ONE (09:58)
[2019-04-19] MEDS ORDERED: NACL 0.9% 250ML 250 ML ONE (09:58)
[2019-04-19] MEDS ORDERED: PEPCID IV NR (10:00)
[2019-04-19] MEDS ORDERED: NACL 0.9% 1000 ML 1,000 ML IV SCH ×2 (10:00→19:22)
--- NOTE | 2019-04-19 10:24 | Anesthesia Consultation ---
Anesthesia Consult and Med Hx Date of service: 04/19/19 - Airway Anesthetic Teeth Evaluation: Dentures (upper and lower), Edentulous ROM Head & Neck: Adequate Mental/Hyoid Distance: Adequate Mallampati Class: Class II Intubation Access Assessment: Probably Good - Pre-Operative Health Status ASA Pre-Surgery Classification: ASA3 Proposed Anesthetic Plan: General - Pulmonary Hx Smoking: Yes (Quit 10 years ago, h/o 25 pack/year smoking) Hx Asthma: No COPD: No Hx Pneumonia: No Hx Sleep Apnea: No - Cardiovascular System Hx Hypertension: Yes Hx Peripheral Vascular Disease: Yes (chronic abdominal aortic occusion, right popleteal artelial thrombosis) - Gastrointestinal Hx Gastroesophageal Reflux Disease: Yes - Endocrine Hx End Stage Renal Disease: No
--- NOTE | 2019-04-19 10:26 | Anesthesia Day of Surgery ---
Anesthesia Day of Surgery - Day of Surgery Patient Examined: Yes Patient H&P Reviewed: Yes Patient is NPO: Yes Cardiac Clearance: Yes
[2019-04-19] MEDS ORDERED: XYLOCAINE MPF 2% ONE (10:43)
[2019-04-19] MEDS ORDERED: DIPRIVAN 10 MG/ML IV ONE (10:43)
[2019-04-19] MEDS ORDERED: DILAUDID ONE (10:43)
[2019-04-19] MEDS ORDERED: ZEMURON IV ONE ×3 (10:47→17:06)
[2019-04-19] MEDS ORDERED: DILAUDID IV PRN (11:17)
[2019-04-19] MEDS ORDERED: NACL 0.9% 50 ML ONE (11:22)
[2019-04-19] MEDS ORDERED: NACL 0.9% 100 ML ONE ×2 (11:30→13:17)
--- NOTE | 2019-04-19 11:50 | Event Note ---
Date: 04/19/19 Cardiology was consulted to provide preoperative cardiac risk stratification. Pt has yet to complete cardiac stress testing or echo and thus we are unable to provide a cardiac risk stratification. Per per vascular surgery, pt must urgently undergo contemplated vascular procedure despite lack of cardiac risk stratification. Pt currently appears stable from cardiac perspective. There are no apparent immediate cardiac contraindications to proceeding with vascular procedure at this time. Will follow. Sulma ORTIZ NP / DR. LICONA
[2019-04-19] MEDS ORDERED: K-DUR PO NR (12:00)
[2019-04-19] MEDS ORDERED: ANCEF/STERILE WATER 2 GM/20 ML IV NR (14:00)
[2019-04-19] MEDS ORDERED: NEO SYNEPHRINE/NS Syringe(OR USE) IV ONE (14:37)
[2019-04-19] MEDS ORDERED: NACL 0.9% 1000 ML 1,000 ML ONE (15:07)
[2019-04-19] MEDS ORDERED: HEPARIN 10,000 UNITS/10 ML IV ONE (15:10)
[2019-04-19] MEDS ORDERED: NACL 0.9% IR ONE (15:10)
[2019-04-19] MEDS ORDERED: OMNIPAQUE (240mg) IV ONE (15:10)
--- NOTE | 2019-04-19 16:41 | Event Note ---
Date: 04/19/19 Multiple visit made to evaluate patient, patient not available in the room. Visit to the OR, UNABLE TO SEE PATIENT. Will re-evaluate later tonight or in AM
[2019-04-19] MEDS ORDERED: BLOXIVERZ ONE (17:51)
[2019-04-19] MEDS ORDERED: ROBINUL ONE (17:51)
[2019-04-19] MEDS ORDERED: NEO SYNEPHRINE ONE (17:56)
[2019-04-19] MEDS ORDERED: ZOFRAN ONE (17:59)
[2019-04-19] MEDS ORDERED: DECADRON ONE (17:59)
--- NOTE | 2019-04-19 18:23 | Operative Report ---
Operative Report Operative Report: Date of Procedure: 04/19/2019 Pre-operative Diagnosis: Abdominal Aortic Thrombus With Distal Emboli to Right Lower Extremity Post-operative Diagnosis: Same Procedure(s): 1. Ultrasound-Guided Access Right Common Femoral Artery 2. Ultrasound-Guided Access Left Common Femoral Artery 3. Bilateral Catheters and Aorta 4. Diagnostic Aortogram (No Previous Films for Comparison) 5. Percutaneous Endovascular Repair of Aortic with 25 x 70/ I 16 x 30 Endologix AFX II Bifurcated Device 6. Angioplasty and Stent Left Common Iliac Artery with 14 x 60 EverFlex Self- Expanding Stent Postdilated with a 14 x 40 Curlew Balloon 7. Radiologic Supervision with Interpretation 8. Open Embolectomy of Right Popliteal Artery With a 4 Karla From a Below- Knee Popliteal Approach 9. Open Embolectomy of Right Anterior Tibial Artery with a 3 Karla from a Below-Knee Popliteal Approach 10. Open Embolectomy of Right Peroneal Artery with a 3 Karla from Below-Knee Popliteal Approach Surgeon: Jaya Araujo M.D. Lead Designer: None Anesthesia: Gen. Endotracheal Anesthesia EBL: 400 mL Counts: Correct Complications: None Condition: Stable Findings: Thrombus in the aorta was successfully covered with aortic stent graft. There was minimal backbleeding from the tibial vessels prior to the embolectomy as well as poor antegrade bleeding from the popliteal artery however the backbleeding from the anterior tibial as well as the peroneal artery significantly improved after embolectomy and there was audible antegrade bleeding after embolectomy of the popliteal artery. Specimen: Thrombus from the popliteal artery as well as the tibial vessels was sent to pathology. Indication: The patient is a 63-year-old male with a history of an aortic thrombus who initially presented 4 years ago with a thrombus in the renal arteries including multiple renal infarcts. He was initially maintained on Coumadin and was lost to follow-up. He presented to the emergency department with complaints of numbness and short distance claudication of his right lower extremity. CTA of his abdomen and pelvis with runoff revealed thrombus in the abdominal aorta just above the bifurcation with evidence of multiple emboli to the tibial vessels and popliteal artery on the right lower extremity. Given this multiple plans were discussed however it was felt that the best way to manage this was to exclude the thrombus from flow by placing a abdominal aortic endograft as well as performing an open embolectomy to improve flow to the right lower extremity. This plan as well as alternatives were discussed with the patient who expressed understanding and agreed to proceed with the operation. Description of Procedure: The patient was brought into the operating room and laid in supine position. After general endotracheal anesthesia was achieved he was prepped and draped in normal sterile fashion. Fluoroscopy was used to identify the femoral head on each side and this was marked. I then used ultrasound to identify the right common femoral artery and confirmed patency. Once patency was confirmed an 11 blade was used to make a small stab incision and a hemostat was used to bluntly dissect down to the anterior surface of the right common femoral artery. Micropuncture technique was then used to access the artery under ultrasound guidance and then a 6 Macedonian sheath was placed by Seldinger technique. A Preclose technique was then used to place 2 ProGlide closure devices at the 2:00 and 10 o'clock position in the artery and then an 8 Macedonian sheath was placed by Seldinger technique. This same technique was performed and the left common femoral artery including the pre-close technique and an 8 Macedonian sheath was then placed. At this point I systemically heparinized the patient. A snare catheter was then advanced through the left common femoral artery sheath to just above the bifurcation but ensuring that it was below the thrombus. A vertebral catheter was advanced over the 0.035 Bentson wire in the right common femoral artery and this was exchanged for a 0.035 Lunderquist wire. The 8 Macedonian sheath was then exchanged for a 19 Macedonian AFX to introduce sheath. This was advanced into the distal tip was just at the level of the bifurcation. The 25 x 70 AFX II bifurcated device was then loaded onto the Lunderquist wire and advanced with the contralateral wire up through the 19 Macedonian sheath. The contralateral wire was advanced and snared and then pulled down through the left common femoral a rtery. As the graft was advanced under fluoroscopy the contralateral wire was pulled to ensure that constant tension was kept on the wire. Once this system was advanced and the distal limbs were above the aortic bifurcation, releasing the limbs of the graft from the sheath, the entire system was pulled down on the aorta bifurcation. The control cord was then pulled deploying the main body of the graft. The contralateral limb was deployed by pulling the yellow then cover off of the contralateral wire and then advancing the Omni flush catheter over the contralateral wire until the tip was in contact with wire lock. The Omni Flush catheter was then held in place and the contralateral wire was pulled to release it from the wire lock. The ipsilateral limb was deployed by pinning the inner core and retracting the AFX introducer sheath. Once this was deployed a 0.035 Bentson wire was advanced to the Omni Flush catheter and 12 x 40 balloons were used to post dilate the iliac limbs as well as simultaneously inflated within the body of the graft to ensure with well opposed to the aortic wall. The Omni Flush catheter was then advanced into the aorta above the level of the endograft and aortogram performed. This revealed that the thrombus had been trapped by the endograft however, because of the tortuosity of the left iliac artery, the left limb of the graft ended in a perpendicular fashion with the left common iliac artery. The decision was made to place a 14 x 60 EverFlex self expanding stent to straighten out the limb. This didn't extend from the bifurcation of the body of the graft to the distal left common iliac artery. This was postdilated with a 14 x 40 Curlew. The Omni Flush catheter was reinserted and the final aortogram revealed brisk flow of contrast through the body of the graft as well as through each limb without any flow limiting stenosis or evidence of thrombus or distal emboli. I then reinserted the Bentson wire into the Omni Flush catheter removed. I used the previously placed ProGlide closure devices to close each respective femoral arteriotomy. I then anesthetized each entry site and closed the skin with 4-0 Monocryl in interrupted fashion and dressed with Dermabond. I then turned my attention to the embolectomy. I made a longitudinal incision on the medial aspect of the right calf and used sharp dissection to carry the incision down to the popliteal artery. I identified the anterior tibial artery and tibioperoneal trunk and dissected the popliteal artery circumferentially just proximal to the trifurcation. I controlled the popliteal artery with 2 vessel loops and then made an arteriotomy with an 11 blade and Telles scissors. Upon opening the arteriotomy there was very minimal back bleeding from the tibial vessels. I advanced a 3 Karla into the tibioperoneal trunk and it appeared to go into the peroneal artery. I made several passes pulling back small emboli until the passes were cleaned. At that point there was improved backbleeding. I flushed the artery with heparinized saline and then advanced a 3 Karla into the anterior tibial artery initially had some difficulty passing the Karla but was eventually able to pass the Karla to approximately the 40 cm cat. I made several passes until there was no further evidence of emboli with the pass. At that point there was improved backbleeding. I flushed the artery with heparinized saline and then clamped the popliteal artery just proximal to the trifurcation. I then removed the proximal clamp and although there was pulsatile bleeding was significantly diminished. I advanced a 4 Karla into the proximal popliteal artery and then performed and an embolectomy. Once the balloon was pulled back to the arteriotomy there was such significant arterial inflow that I was unable to retrieve the plug however there was obviously a large embolus restricting flow that now been removed. I flushed the artery with heparinized saline and then closed the arteriotomy with 6-0 Prolenes in an interrupted fashion. Prior to leaving the arteriotomy after last both the inflow and the outflow and then flushed the artery with heparinized saline. I completed the closure of the arteriotomy and released the clamps allow flow into the artery which had a palpable pulse distal to the repair. Hemostasis within the wound was achieved with a combination of direct pressure and Cristian. Once hemostasis was achieved the wound was anesthetized with 0.5% Marcaine and then closed in 2 layers using a 3-0 Vicryl in running fashion in the deep dermal layer and a 4-0 Monocryl a running fashion subcuticular layer and then dressed with Dermabond. The patient tolerated the procedure well. All sponge, needle, and instrument counts were correct. The patient was taken to the recovery area in stable condition.
[2019-04-19] MEDS: PROTONIX PO SCH ×2 (20:07→21:21)
[2019-04-19] MEDS: SODIUM CHLORIDE FLUSH SYRINGE 10 ML IV SCH ×2 (20:07→21:07)
[2019-04-19] MEDS: HEPARIN/ 0.45% NACL-25,000 UNIT/500 ML 25,000 UNIT/500 ML BAG IV SCH (21:00)
[2019-04-19] MEDS: PERCOCET 5/325 PO PRN (21:20)
--- NOTE | 2019-04-19 22:14 | Post Anesthesia Evaluation ---
- Post Anesthesia Evaluation Patient Participated: Yes Airway Patent: Yes Stable Respiratory Function: Yes Nausea/Vomiting: No Temp > 96.8F: Yes Pain Manageable: Yes Adequeate Hydration: Yes Anesthesia Complications: No
[2019-04-20] MEDS ORDERED: NACL 0.9% 1000 ML 1,000 ML IV SCH (00:24)
[2019-04-20] MEDS: PERCOCET 5/325 PO PRN ×2 (02:45→09:25)
[2019-04-20] MEDS: ANCEF/NS 1 GM/50 ML 1 GM/50 ML BAG IV SCH ×2 (03:09→11:06)
[2019-04-20] MEDS ORDERED: ATIVAN IV ONE (03:41)
[2019-04-20 06:18] LABS: Hematocrit 34.9 % (35.5-45.6); Hemoglobin 11.9 gm/dl (11.8-15.2)
[2019-04-20] MEDS: PLAVIX PO SCH (09:25)
[2019-04-20] MEDS: PROTONIX PO SCH ×2 (09:26→22:10)
[2019-04-20] MEDS: SODIUM CHLORIDE FLUSH SYRINGE 10 ML IV SCH ×2 (09:29→22:10)
[2019-04-20] MEDS: CARAFATE PO SCH ×4 (10:58→22:10)
--- NOTE | 2019-04-20 11:22 | Progress Note ---
Assessment and Plan Patient admitted with right lower extremity arterial insufficiency with abdominal aortic thrombus and also thrombus in the right lower extremity arteries. Presently is having rest pain. Being managed with IV heparin. He apparently had abdominal aortic thrombus few years ago. Cardiology was consulted to provide preoperative cardiac risk stratification but pt was taken to OR for urgent vascular surgery prior to stress test or echo. Pt underwent vascular surgery yesterday and appears stable from cardiac perspective. He remains on heparin gtt. Await echo. The patient has been seen in conjunction with Dr. Burkett who agrees with the assessment and plan of care. 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 s/p vascular surgery yesterday. c/o RLE pain r/t surgical site. Objective Last Vital Signs Temp 97.9 F 04/20/19 08:00 Pulse 68 04/20/19 10:00 Resp 13 04/20/19 10:00 BP 124/73 04/20/19 10:00 Pulse Ox 100 04/20/19 10:00 - Physical Examination General: No Apparent Distress HEENT: Positive: PERRL Neck: Positive: neck supple Cardiac: Positive: Reg Rate and Rhythm, S1/S2 Lungs: Positive: Decreased Breath Sounds Neuro: Positive: Grossly Intact Abdomen: Positive: Unremarkable - Labs and Meds CBC 04/20/19 Range/Units 05:15 Hgb 11.9 (11.8-15.2) gm/dl Hct 34.9 L (35.5-45.6) % Plt Count 172 (140-440) K/mm3
--- NOTE | 2019-04-20 14:22 | Progress Note ---
Assessment and Plan Assessment and plan: Patient is a 63 yo man with a history of prior tobacco dependency, GERD and Aortic Thrombus with Renal Embolization on therapeutic anticoagulation who presented to [facility] ED with right leg pains. Patient was non-compliant with anticoagulation per chart. Acute Right leg Limb Ischemia, s/p Open embolectomy on 04/19/2019: continue to treat with Anticoagulation, Vascular Surgeon following Abdominal aorta thrombosis s/p Endovascular repair on 04/19/2019: Vascular surgery is managing. Hypertension: continue anti-hypertensives, low salt diet Hypokalemia: repleted, monitor bmp Drop in HCT: monitor CBC closely DVT prophylaxis: Therapeutic anticoagulation, History Interval history: Patient was seen and examined. Follow-up on current diagnosis of Aortic Abdominal Thrombus. No overnight events reported to me. Patient denies any chest pain, shortness breath, nausea/vomiting or severe headaches. Imaging, nursing note, chart, labs and old chart reviewed. Discussed with patient. Hospitalist Physical - Physical exam Narrative exam: Gen: WDWN, NAD, Awake, Alert, Orientated HEENT: NCAT, EOMI, PERRL, OP Clear Neck: supple, no adenopathy, no thyromegaly, no JVD CVS/Heart: RRR, normal S1S2, pulses abnormal right leg, right foot cool to touch Chest/Lungs: CTA B, Symmetrical chest expansion, good air entry bilaterally GI/Abdomen: soft, NTND, good bowel sounds, no guarding or rebound /Bladder: no suprapubic tenderness, no CVA or paraspinal tenderness Extermity/Skin: no c/c/e, no obvious rash MSK: FROM x 4 Neuro: CN 2-12 grossly intact, no new focal deficits Psych: calm - Constitutional Vitals: Temp Pulse Resp BP Pulse Ox 97.8 F 75 17 128/76 98 04/20/19 12:00 04/20/19 13:00 04/20/19 13:00 04/20/19 13:00 04/20/19 13:00 General appearance: Present: no acute distress Results - Labs CBC & Chem 7: 04/20/19 05:15 04/19/19 06:08 Labs: Laboratory Last Values WBC 3.8 K/mm3 (4.5-11.0) L 04/19/19 06:08 RBC 4.39 M/mm3 (3.65-5.03) 04/19/19 06:08 Hgb 11.9 gm/dl (11.8-15.2) 04/20/19 05:15 Hct 34.9 % (35.5-45.6) L 04/20/19 05:15 MCV 90 fl (84-94) 04/19/19 06:08 MCH 31 pg (28-32) 04/19/19 06:08 MCHC 35 % (32-34) H 04/19/19 06:08 RDW 13.4 % (13.2-15.2) 04/19/19 06:08 Plt Count 172 K/mm3 (140-440) 04/20/19 05:15 Lymph % (Auto) 24.2 % (13.4-35.0) 04/19/19 06:08 [place] % (Auto) 11.9 % (0.0-7.3) H 04/19/19 06:08 Eos % (Auto) 2.2 % (0.0-4.3) 04/19/19 06:08 Baso % (Auto) 0.4 % (0.0-1.8) 04/19/19 06:08 Lymph # 0.9 K/mm3 (1.2-5.4) L 04/19/19 06:08 [place] # 0.5 K/mm3 (0.0-0.8) 04/19/19 06:08 Eos # 0.1 K/mm3 (0.0-0.4) 04/19/19 06:08 Baso # 0.0 K/mm3 (0.0-0.1) 04/19/19 06:08 Seg Neutrophils % 61.3 % (40.0-70.0) 04/19/19 06:08 Seg Neutrophils # 2.3 K/mm3 (1.8-7.7) 04/19/19 06:08 PT 13.1 Sec. (12.2-14.9) 04/18/19 12:49 INR 1.02 (0.87-1.13) 04/18/19 12:49 APTT 26.6 Sec. (24.2-36.6) 04/18/19 12:49 Heparin Anti-Xa Level 0.26 U.I./ml (0.3-0.7) L 04/20/19 09:20 Sodium 137 mmol/L (137-145) 04/19/19 06:08 Potassium 3.3 mmol/L (3.6-5.0) L D 04/19/19 06:08 Chloride 99.6 mmol/L (98-107) 04/19/19 06:08 Carbon Dioxide 25 mmol/L (22-30) 04/19/19 06:08 16 mmol/L 04/19/19 06:08 BUN 15 mg/dL (9-20) 04/19/19 06:08 1.2 mg/dL (0.8-1.5) 04/19/19 06:08 Estimated GFR > 60 ml/min 04/19/19 06:08 13 % 04/19/19 06:08 Glucose 112 mg/dL (75-100) H 04/19/19 06:08 Calcium 8.8 mg/dL (8.4-10.2) 04/19/19 06:08 0.30 mg/dL (0.1-1.2) 04/19/19 06:08 AST 29 units/L (5-40) 04/19/19 06:08 ALT 21 units/L (7-56) 04/19/19 06:08 36 units/L (35-129) 04/19/19 06:08 344 units/L (55-170) H 04/18/19 09:44 7.1 g/dL (6.3-8.2) 04/19/19 06:08 4.0 g/dL (3.9-5) 04/19/19 06:08 1.3 % 04/19/19 06:08 Triglycerides 100 mg/dL (2-149) 04/18/19 09:40 Cholesterol 235 mg/dL (50-199) H 04/18/19 09:40 121 mg/dL (50-130) 04/18/19 09:40 110 mg/dL (40-59) H 04/18/19 09:40 2.13 % 04/18/19 09:40 Yellow (Yellow) 04/19/19 07:30 Slightly-cloudy (Clear) 04/19/19 07:30 5.0 (5.0-7.0) 04/19/19 07:30 Ur Specific [place] 1.033 (1.003-1.030) H 04/19/19 07:30 30 mg/dl mg/dL (Negative) 04/19/19 07:30 Neg mg/dL (Negative) 04/19/19 07:30 Neg mg/dL (Negative) 04/19/19 07:30 Sm (Negative) 04/19/19 07:30 Neg (Negative) 04/19/19 07:30 Neg (Negative) 04/19/19 07:30 < 2.0 mg/dL (<2.0) 04/19/19 07:30 Ur Leukocyte Esterase Neg (Negative) 04/19/19 07:30 1.0 /HPF (0.0-6.0) 04/19/19 07:30 1.0 /HPF (0.0-6.0) 04/19/19 07:30 U Epithel Cells (Auto) < 1.0 /HPF (0-13.0) 04/19/19 07:30 1+ /HPF (Negative) 04/19/19 07:30 Few /HPF 04/19/19 07:30 Presumptive negative 04/19/19 04:48 Presumptive negative 04/19/19 04:48 Ur Barbiturates Screen Presumptive negative 04/19/19 04:48 Ur Phencyclidine Scrn Presumptive negative 04/19/19 04:48 Ur Amphetamines Screen Presumptive negative 04/19/19 04:48 U Benzodiazepines Scrn Presumptive negative 04/19/19 04:48 Presumptive negative 04/19/19 04:48 U Marijuana (THC) Screen Presumptive negative 04/19/19 04:48 Disclamer 04/19/19 04:48 Blood Type A POSITIVE 04/19/19 10:05 Antibody Screen Negative 04/19/19 10:05 Crossmatch See Detail 04/19/19 10:05 Active Medications - Current Medications Current Medications: Generic Name Dose Route Start Last Admin Trade Name Freq PRN Reason Stop Dose Admin Acetaminophen 650 mg 04/18/19 12:36 Tylenol PO Q4H PRN Pain MILD(1-3)/Fever >100.5/CONCEPCION Albuterol 2.5 mg 04/18/19 12:36 Proventil IH Q4H PRN Shortness Of Breath Clopidogrel Bisulfate 75 mg 04/20/19 10:00 04/20/19 09:25 Plavix PO 75 mg QDAY TALIA Administration Heparin Sodium/Sodium Chloride 25,000 unit in 500 mls @ 18 mls/hr 04/19/19 19:22 04/20/19 10:57 Heparin/ 0.45% Nacl-25,000 Unit/500 Ml IV 1,000 units/hr TITRATE TALIA 20 mls/hr Titration Protocol 900 UNITS/HR Ondansetron HCl 4 mg 04/18/19 12:36 Zofran IV Q8H PRN Nausea And Vomiting Oxycodone/Acetaminophen 1 tab 04/18/19 12:36 04/20/19 09:25 Percocet 5/325 PO 1 tab Q6H PRN Administration Pain, Moderate (4-6) Pantoprazole Sodium 40 mg 04/18/19 14:00 04/20/19 09:26 Protonix PO 40 mg BID TALIA Administration Sodium Chloride 10 ml 04/18/19 22:00 04/20/19 09:29 Sodium Chloride Flush Syringe 10 Ml IV 10 ml BID TALIA Administration Sodium Chloride 10 ml 04/18/19 12:36 Sodium Chloride Flush Syringe 10 Ml IV PRN PRN LINE FLUSH Sucralfate 1 gm 04/18/19 16:30 04/20/19 11:02 Carafate PO 1 gm ACHS TALIA Administration
[2019-04-20] MEDS ORDERED: PERCOCET 5/325 PO PRN (14:34)
--- NOTE | 2019-04-20 14:43 | Progress Note ---
Assessment and Plan POD #1 Adjust pain medication to better control pain, add Neurontin for neuropathic pain OOB ambulate with assistance Restart Coumadin Okay to transfer to Med/Surgical Floor, from a surgcial standpoint Subjective Date of service: 04/20/19 Principal diagnosis: PVD Interval history: The patient states his pain is poorly controlled with his current medications. Complaining of incision and right foot pain. States that initially the foot felt somewhat normal but now the first two toes feel numb again. States it feels like lightening in his foot. no other complaints. Objective - Constitutional Vitals: Vital Signs - 12hr 04/20/19 04/20/19 04/20/19 02:45 03:01 03:30 Temperature Pulse Rate 78 63 Pulse Rate [ From Monitor] Respiratory 16 12 12 Rate Respiratory Rate [Bilateral Leg] Blood Pressure 118/71 108/65 O2 Sat by Pulse 98 99 Oximetry 04/20/19 04/20/19 04/20/19 03:38 04:00 04:31 Temperature 98.7 F Pulse Rate 65 58 L Pulse Rate [ 68 From Monitor] Respiratory 13 9 L Rate Respiratory Rate [Bilateral Leg] Blood Pressure 105/74 100/67 O2 Sat by Pulse 98 100 Oximetry 04/20/19 04/20/19 04/20/19 05:01 05:31 06:00 Temperature Pulse Rate 78 58 L 56 L Pulse Rate [ From Monitor] Respiratory 11 L 10 L 14 Rate Respiratory Rate [Bilateral Leg] Blood Pressure 120/48 122/68 123/76 O2 Sat by Pulse 100 100 100 Oximetry 04/20/19 04/20/19 04/20/19 06:31 07:00 08:00 Temperature 97.9 F Pulse Rate 61 56 L Pulse Rate [ 74 From Monitor] Respiratory 11 L 13 17 Rate Respiratory Rate [Bilateral Leg] Blood Pressure 133/72 124/79 O2 Sat by Pulse 99 100 98 Oximetry 04/20/19 04/20/19 04/20/19 08:01 09:01 09:07 Temperature Pulse Rate 60 74 Pulse Rate [ From Monitor] Respiratory 12 19 Rate Respiratory Rate [Bilateral Leg] Blood Pressure 126/75 143/81 O2 Sat by Pulse 97 97 Oximetry 04/20/19 04/20/19 04/20/19 10:00 11:01 12:00 Temperature 97.8 F Pulse Rate 68 85 61 Pulse Rate [ 62 From Monitor] Respiratory 13 17 13 Rate Respiratory 17 Rate [Bilateral Leg] Blood Pressure 124/73 124/73 127/76 O2 Sat by Pulse 100 99 99 Oximetry 04/20/19 04/20/19 13:00 14:00 Temperature Pulse Rate 75 78 Pulse Rate [ From Monitor] Respiratory 17 16 Rate Respiratory Rate [Bilateral Leg] Blood Pressure 128/76 126/72 O2 Sat by Pulse 98 100 Oximetry General appearance: Present: no acute distress - Neck Neck: supple - Respiratory Respiratory effort: normal - Cardiovascular Rhythm: regular Extremities: no ischemia, normal temperature, abnormal (multiphasic doppler signal right PT, incision right calf is clean and intact without signs of hematoma. Bilateral groin entry sites without signs of hematoma.) - Musculoskeletal Musculoskeletal: other (motor intact to right foot) - Neurologic Neurologic: other (sensation intact to right foot) - Labs CBC & Chem 7: 04/20/19 05:15 04/19/19 06:08 Labs: Abnormal lab results 04/19/19 04/19/19 04/20/19 Range/Units 10:05 19:41 02:00 Hct (35.5-45.6) % Heparin Anti-Xa Level < 0.10 L 0.14 L (0.3-0.7) U.I./ml Crossmatch See Detail 04/20/19 04/20/19 Range/Units 05:15 09:20 Hct 34.9 L (35.5-45.6) % Heparin Anti-Xa Level 0.26 L (0.3-0.7) U.I./ml Crossmatch Medications & Allergies - Medications Allergies/Adverse Reactions: Allergies No Known Allergies Allergy (Verified 05/23/18 09:09) Home Medications: Home Medications Medication Instructions Recorded Confirmed Last Taken Type Warfarin [Coumadin] 7.5 mg PO QDAY #30 tablet 10/17/15 Unknown Rx Pantoprazole [Protonix TAB] 40 mg PO BID #60 tablet 05/23/18 Unknown Rx Sucralfate [Carafate] 1 gm PO ACHS 30 Days tablet 05/23/18 Unknown Rx Active Medications: Generic Name Dose Route Start Last Admin Trade Name Freq PRN Reason Stop Dose Admin Acetaminophen 650 mg 04/18/19 12:36 Tylenol PO Q4H PRN Pain MILD(1-3)/Fever >100.5/CONCEPCION Albuterol 2.5 mg 04/18/19 12:36 Proventil IH Q4H PRN Shortness Of Breath Clopidogrel Bisulfate 75 mg 04/20/19 10:00 04/20/19 09:25 Plavix PO 75 mg QDAY TALIA Administration Gabapentin 300 mg 04/20/19 22:00 Neurontin PO Q8HR TALIA Hydromorphone HCl 1 mg 04/20/19 14:34 Dilaudid IV Q4H PRN Pain , Severe (7-10) Heparin Sodium/Sodium Chloride 25,000 unit in 500 mls @ 18 mls/hr 04/19/19 19:22 04/20/19 10:57 Heparin/ 0.45% Nacl-25,000 Unit/500 Ml IV 1,000 units/hr TITRATE TALIA 20 mls/hr Titration Protocol 900 UNITS/HR Ondansetron HCl 4 mg 04/18/19 12:36 Zofran IV Q8H PRN Nausea And Vomiting Oxycodone/Acetaminophen 2 tab 04/20/19 14:34 Percocet 5/325 PO Q6H PRN Pain, Moderate (4-6) Pantoprazole Sodium 40 mg 04/18/19 14:00 04/20/19 09:26 Protonix PO 40 mg BID TALIA Administration Sodium Chloride 10 ml 04/18/19 22:00 04/20/19 09:29 Sodium Chloride Flush Syringe 10 Ml IV 10 ml BID TALIA Administration Sodium Chloride 10 ml 04/18/19 12:36 Sodium Chloride Flush Syringe 10 Ml IV PRN PRN LINE FLUSH Sucralfate 1 gm 04/18/19 16:30 04/20/19 11:02 Carafate PO 1 gm ACHS TALIA Administration Warfarin Sodium 7.5 mg 04/20/19 17:00 Coumadin PO DAILY@1700 [facility] Protocol
[2019-04-20] MEDS: DILAUDID IV PRN (15:55)
[2019-04-20] MEDS: COUMADIN PO SCH (18:45)
[2019-04-20] MEDS: NEURONTIN PO SCH (22:10)
[2019-04-20] MEDS: HEPARIN/ 0.45% NACL-25,000 UNIT/500 ML 25,000 UNIT/500 ML BAG IV SCH (23:09)
[2019-04-21 05:51] LABS: INR 1.16 (0.87-1.13)
[2019-04-21] MEDS: NEURONTIN PO SCH ×3 (06:11→22:00)
[2019-04-21] MEDS: CARAFATE PO SCH ×4 (08:16→22:00)
[2019-04-21] MEDS: DILAUDID IV PRN ×2 (08:27→20:16)
--- NOTE | 2019-04-21 08:48 | Progress Note ---
Assessment and Plan Assessment and plan: Patient is a 63 yo man with a history of prior tobacco dependency, GERD and Aortic Thrombus with Renal Embolization on therapeutic anticoagulation who presented to [facility] ED with right leg pains. Patient was non-compliant with anticoagulation per chart. Acute Right leg Limb Ischemia, s/p Open embolectomy on 04/19/2019: continue to treat with Anticoagulation, Vascular Surgeon following Abdominal aorta thrombosis s/p Endovascular repair on 04/19/2019: Vascular surgery is managing. Hypertension: continue anti-hypertensives, low salt diet Hypokalemia: repleted, monitor bmp Drop in HCT: monitor CBC closely DVT prophylaxis: Therapeutic anticoagulation, Anticipate discharge tomorrow once cleared by Vascular, d/w Dr. Sosa who will let me know History Interval history: Patient was seen and examined. Follow-up on current diagnosis of Aortic Abdominal Thrombus. No overnight events reported to me. Patient denies any chest pain, shortness breath, nausea/vomiting or severe headaches. Imaging, nursing note, chart, labs and old chart reviewed. Discussed with patient. Hospitalist Physical - Physical exam Narrative exam: Gen: WDWN, NAD, Awake, Alert, Orientated HEENT: NCAT, EOMI, PERRL, OP Clear Neck: supple, no adenopathy, no thyromegaly, no JVD CVS/Heart: RRR, normal S1S2, pulses abnormal right leg, right foot now warm to touch Chest/Lungs: CTA B, Symmetrical chest expansion, good air entry bilaterally GI/Abdomen: soft, NTND, good bowel sounds, no guarding or rebound /Bladder: no suprapubic tenderness, no CVA or paraspinal tenderness Extermity/Skin: no c/c/e, no obvious rash MSK: FROM x 4 Neuro: CN 2-12 grossly intact, no new focal deficits Psych: calm - Constitutional Vitals: Temp Pulse Resp BP Pulse Ox 98.8 F 92 H 20 119/68 93 04/21/19 07:48 04/21/19 08:40 04/21/19 08:27 04/21/19 07:48 04/21/19 07:48 General appearance: Present: no acute distress Results - Labs CBC & Chem 7: 04/20/19 05:15 04/19/19 06:08 Labs: Laboratory Last Values WBC 3.8 K/mm3 (4.5-11.0) L 04/19/19 06:08 RBC 4.39 M/mm3 (3.65-5.03) 04/19/19 06:08 Hgb 11.9 gm/dl (11.8-15.2) 04/20/19 05:15 Hct 34.9 % (35.5-45.6) L 04/20/19 05:15 MCV 90 fl (84-94) 04/19/19 06:08 MCH 31 pg (28-32) 04/19/19 06:08 MCHC 35 % (32-34) H 04/19/19 06:08 RDW 13.4 % (13.2-15.2) 04/19/19 06:08 Plt Count 172 K/mm3 (140-440) 04/20/19 05:15 Lymph % (Auto) 24.2 % (13.4-35.0) 04/19/19 06:08 [place] % (Auto) 11.9 % (0.0-7.3) H 04/19/19 06:08 Eos % (Auto) 2.2 % (0.0-4.3) 04/19/19 06:08 Baso % (Auto) 0.4 % (0.0-1.8) 04/19/19 06:08 Lymph # 0.9 K/mm3 (1.2-5.4) L 04/19/19 06:08 [place] # 0.5 K/mm3 (0.0-0.8) 04/19/19 06:08 Eos # 0.1 K/mm3 (0.0-0.4) 04/19/19 06:08 Baso # 0.0 K/mm3 (0.0-0.1) 04/19/19 06:08 Seg Neutrophils % 61.3 % (40.0-70.0) 04/19/19 06:08 Seg Neutrophils # 2.3 K/mm3 (1.8-7.7) 04/19/19 06:08 PT 14.5 Sec. (12.2-14.9) 04/21/19 04:18 INR 1.16 (0.87-1.13) H 04/21/19 04:18 APTT 26.6 Sec. (24.2-36.6) 04/18/19 12:49 Antithrombin III Ag 103 % (80-120) 04/18/19 12:56 Heparin Anti-Xa Level 0.45 U.I./ml (0.3-0.7) 04/20/19 21:29 Sodium 137 mmol/L (137-145) 04/19/19 06:08 Potassium 3.3 mmol/L (3.6-5.0) L D 04/19/19 06:08 Chloride 99.6 mmol/L (98-107) 04/19/19 06:08 Carbon Dioxide 25 mmol/L (22-30) 04/19/19 06:08 16 mmol/L 04/19/19 06:08 BUN 15 mg/dL (9-20) 04/19/19 06:08 1.2 mg/dL (0.8-1.5) 04/19/19 06:08 Estimated GFR > 60 ml/min 04/19/19 06:08 13 % 04/19/19 06:08 Glucose 112 mg/dL (75-100) H 04/19/19 06:08 Calcium 8.8 mg/dL (8.4-10.2) 04/19/19 06:08 0.30 mg/dL (0.1-1.2) 04/19/19 06:08 AST 29 units/L (5-40) 04/19/19 06:08 ALT 21 units/L (7-56) 04/19/19 06:08 36 units/L (35-129) 04/19/19 06:08 344 units/L (55-170) H 04/18/19 09:44 7.1 g/dL (6.3-8.2) 04/19/19 06:08 4.0 g/dL (3.9-5) 04/19/19 06:08 1.3 % 04/19/19 06:08 Triglycerides 100 mg/dL (2-149) 04/18/19 09:40 Cholesterol 235 mg/dL (50-199) H 04/18/19 09:40 121 mg/dL (50-130) 04/18/19 09:40 110 mg/dL (40-59) H 04/18/19 09:40 2.13 % 04/18/19 09:40 Yellow (Yellow) 04/19/19 07:30 Slightly-cloudy (Clear) 04/19/19 07:30 5.0 (5.0-7.0) 04/19/19 07:30 Ur Specific [place] 1.033 (1.003-1.030) H 04/19/19 07:30 30 mg/dl mg/dL (Negative) 04/19/19 07:30 Neg mg/dL (Negative) 04/19/19 07:30 Neg mg/dL (Negative) 04/19/19 07:30 Sm (Negative) 04/19/19 07:30 Neg (Negative) 04/19/19 07:30 Neg (Negative) 04/19/19 07:30 < 2.0 mg/dL (<2.0) 04/19/19 07:30 Ur Leukocyte Esterase Neg (Negative) 04/19/19 07:30 1.0 /HPF (0.0-6.0) 04/19/19 07:30 1.0 /HPF (0.0-6.0) 04/19/19 07:30 U Epithel Cells (Auto) < 1.0 /HPF (0-13.0) 04/19/19 07:30 1+ /HPF (Negative) 04/19/19 07:30 Few /HPF 04/19/19 07:30 Presumptive negative 04/19/19 04:48 Presumptive negative 04/19/19 04:48 Ur Barbiturates Screen Presumptive negative 04/19/19 04:48 Ur Phencyclidine Scrn Presumptive negative 04/19/19 04:48 Ur Amphetamines Screen Presumptive negative 04/19/19 04:48 U Benzodiazepines Scrn Presumptive negative 04/19/19 04:48 Presumptive negative 04/19/19 04:48 U Marijuana (THC) Screen Presumptive negative 04/19/19 04:48 Disclamer 04/19/19 04:48 Blood Type A POSITIVE 04/19/19 10:05 Antibody Screen Negative 04/19/19 10:05 Crossmatch See Detail 04/19/19 10:05 Active Medications - Current Medications Current Medications: Generic Name Dose Route Start Last Admin Trade Name Freq PRN Reason Stop Dose Admin Acetaminophen 650 mg 04/18/19 12:36 Tylenol PO Q4H PRN Pain MILD(1-3)/Fever >100.5/CONCEPCION Albuterol 2.5 mg 04/18/19 12:36 Proventil IH Q4H PRN Shortness Of Breath Clopidogrel Bisulfate 75 mg 04/20/19 10:00 04/20/19 09:25 Plavix PO 75 mg QDAY TALIA Administration Gabapentin 300 mg 04/20/19 22:00 04/21/19 06:11 Neurontin PO 300 mg Q8HR TALIA Administration Hydromorphone HCl 1 mg 04/20/19 14:34 04/21/19 08:27 Dilaudid IV 1 mg Q4H PRN Administration Pain , Severe (7-10) Heparin Sodium/Sodium Chloride 25,000 unit in 500 mls @ 18 mls/hr 04/19/19 19:22 04/20/19 23:09 Heparin/ 0.45% Nacl-25,000 Unit/500 Ml IV 1,000 units/hr TITRATE TALIA 20 mls/hr Administration Protocol 900 UNITS/HR Ondansetron HCl 4 mg 04/18/19 12:36 Zofran IV Q8H PRN Nausea And Vomiting Oxycodone/Acetaminophen 2 tab 04/20/19 14:34 Percocet 5/325 PO Q6H PRN Pain, Moderate (4-6) Pantoprazole Sodium 40 mg 04/18/19 14:00 04/20/19 22:10 Protonix PO 40 mg BID TALIA Administration Sodium Chloride 10 ml 04/18/19 22:00 04/20/19 22:10 Sodium Chloride Flush Syringe 10 Ml IV 10 ml BID TALIA Administration Sodium Chloride 10 ml 04/18/19 12:36 Sodium Chloride Flush Syringe 10 Ml IV PRN PRN LINE FLUSH Sucralfate 1 gm 04/18/19 16:30 04/21/19 08:16 Carafate PO 1 gm ACHS TALIA Administration Warfarin Sodium 7.5 mg 04/20/19 17:00 04/20/19 18:45 Coumadin PO 7.5 mg DAILY@1700 TALIA Administration Protocol
[2019-04-21] MEDS: PLAVIX PO SCH (11:07)
[2019-04-21] MEDS: PROTONIX PO SCH ×2 (11:08→22:00)
[2019-04-21] MEDS: SODIUM CHLORIDE FLUSH SYRINGE 10 ML IV SCH ×2 (11:09→22:01)
--- NOTE | 2019-04-21 11:30 | Progress Note ---
Assessment and Plan Patient admitted with right lower extremity arterial insufficiency with abdominal aortic thrombus and also thrombus in the right lower extremity arteries. Presently is having rest pain. Being managed with IV heparin. He apparently had abdominal aortic thrombus few years ago. Cardiology was consulted to provide preoperative cardiac risk stratification but pt was taken to OR for urgent vascular surgery prior to stress test or echo. Pt underwent vascular surgery yesterday and appears stable from cardiac perspective. He remains on heparin gtt. Echo reviewed - EF 50-55%, right to left shunt c/w patent foramen ovale demonstrated by bubble study, no significant valvular abnormalities. Currently stable cardiac status. Can consider stress test as OP. Nothing further to add from cardiac perspective at this time. Will sign off. Recommend pt follow up in our office with Dr. Schmitt within 1-2 weeks of hospital discharge ([phone]). The patient has been seen in conjunction with Dr. Burkett who agrees with the assessment and plan of care. 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 Objective Last Vital Signs Temp 98.8 F 04/21/19 07:48 Pulse 92 H 04/21/19 08:40 Resp 20 04/21/19 08:27 BP 119/68 04/21/19 07:48 Pulse Ox 98 04/21/19 08:50 - Physical Examination General: No Apparent Distress HEENT: Positive: PERRL Neck: Positive: neck supple Cardiac: Positive: Reg Rate and Rhythm, S1/S2 Lungs: Positive: Decreased Breath Sounds Neuro: Positive: Grossly Intact Abdomen: Positive: Unremarkable Skin: Positive: Clear Extremities: Present: Other (right foot has markedly decreased pulses, left foot>Pedal pulses are well felt.). Absent: edema - Labs and Meds Coagulation 04/21/19 Range/Units 04:18 PT 14.5 (12.2-14.9) Sec. INR 1.16 H (0.87-1.13)
[2019-04-21 13:24] LABS: Protein S, Free 132 % normal (57-171); Protein S, Total 117 % normal (70-140)
--- NOTE | 2019-04-21 14:11 | Progress Note ---
Assessment and Plan Pt OOB with assistance Subjective Date of service: 04/21/19 Principal diagnosis: PVD Interval history: Patient complaining of minimal swelling to the right lower extremity. Additionally, the tingling those occurring in the first 2 toes on the right foot is improving. The patient has been ambulating with assistance. His right dorsalis pedis and posterior tibial arteries are not easily palpable. No complaints of pain in the foot. Objective - Constitutional Vitals: Vital Signs - 12hr 04/21/19 04/21/19 04/21/19 04:16 07:48 08:27 Temperature 99.2 F 98.8 F Pulse Rate 81 91 H Respiratory 16 16 20 Rate Blood Pressure 130/83 119/68 O2 Sat by Pulse 97 93 Oximetry 04/21/19 04/21/19 04/21/19 08:40 08:50 11:56 Temperature 98.8 F Pulse Rate 92 H 78 Respiratory 16 Rate Blood Pressure 106/68 O2 Sat by Pulse 98 96 Oximetry General appearance: Present: no acute distress - EENT Eyes: EOM intact ENT: hearing intact - Neck Neck: supple, normal ROM - Respiratory Respiratory effort: normal Extremities: abnormal - Gastrointestinal General gastrointestinal: Present: deferred - Genitourinary Male genitourinary: deferred - Psychiatric Psychiatric: cooperative - Labs CBC & Chem 7: 04/22/19 03:54 04/19/19 06:08 Labs: Abnormal lab results 04/21/19 Range/Units 04:18 INR 1.16 H (0.87-1.13) Medications & Allergies - Medications Allergies/Adverse Reactions: Allergies No Known Allergies Allergy (Verified 05/23/18 09:09) Home Medications: Home Medications Medication Instructions Recorded Confirmed Last Taken Type Pantoprazole [Protonix TAB] 40 mg PO BID #60 tablet 05/23/18 04/20/19 Unknown Rx Sucralfate [Carafate] 1 gm PO ACHS 30 Days tablet 05/23/18 04/20/19 Unknown Rx Active Medications: Generic Name Dose Route Start Last Admin Trade Name Freq PRN Reason Stop Dose Admin Acetaminophen 650 mg 04/18/19 12:36 Tylenol PO Q4H PRN Pain MILD(1-3)/Fever >100.5/CONCEPCION Albuterol 2.5 mg 04/18/19 12:36 Proventil IH Q4H PRN Shortness Of Breath Clopidogrel Bisulfate 75 mg 04/20/19 10:00 04/21/19 11:07 Plavix PO 75 mg QDAY TALIA Administration Gabapentin 300 mg 04/20/19 22:00 04/21/19 13:52 Neurontin PO 300 mg Q8HR TALIA Administration Hydromorphone HCl 1 mg 04/20/19 14:34 04/21/19 08:27 Dilaudid IV 1 mg Q4H PRN Administration Pain , Severe (7-10) Heparin Sodium/Sodium Chloride 25,000 unit in 500 mls @ 18 mls/hr 04/19/19 19:22 04/20/19 23:09 Heparin/ 0.45% Nacl-25,000 Unit/500 Ml IV 1,000 units/hr TITRATE TALIA 20 mls/hr Administration Protocol 900 UNITS/HR Ondansetron HCl 4 mg 04/18/19 12:36 Zofran IV Q8H PRN Nausea And Vomiting Oxycodone/Acetaminophen 2 tab 04/20/19 14:34 Percocet 5/325 PO Q6H PRN Pain, Moderate (4-6) Pantoprazole Sodium 40 mg 04/18/19 14:00 04/21/19 11:08 Protonix PO 40 mg BID TALIA Administration Sodium Chloride 10 ml 04/18/19 22:00 04/21/19 11:09 Sodium Chloride Flush Syringe 10 Ml IV 10 ml BID TALIA Administration Sodium Chloride 10 ml 04/18/19 12:36 Sodium Chloride Flush Syringe 10 Ml IV PRN PRN LINE FLUSH Sucralfate 1 gm 04/18/19 16:30 04/21/19 11:08 Carafate PO 1 gm ACHS TALIA Administration Warfarin Sodium 7.5 mg 04/20/19 17:00 04/20/19 18:45 Coumadin PO 7.5 mg DAILY@1700 TALIA Administration Protocol
[2019-04-21] MEDS: COUMADIN PO SCH (20:09)
[2019-04-22] MEDS: HEPARIN/ 0.45% NACL-25,000 UNIT/500 ML 25,000 UNIT/500 ML BAG IV SCH ×2 (01:27→22:00)
[2019-04-22] MEDS: NEURONTIN PO SCH ×3 (05:33→22:00)
[2019-04-22 05:49] LABS: Hematocrit 32.9 % (35.5-45.6); Hemoglobin 11.3 gm/dl (11.8-15.2)
[2019-04-22 05:59] LABS: INR 1.24 (0.87-1.13)
[2019-04-22] MEDS: DILAUDID IV PRN ×3 (06:37→22:06)
[2019-04-22] MEDS: SODIUM CHLORIDE FLUSH SYRINGE 10 ML IV SCH ×2 (10:06→23:29)
[2019-04-22] MEDS: PLAVIX PO SCH (10:06)
[2019-04-22] MEDS: CARAFATE PO SCH ×4 (10:06→22:00)
[2019-04-22] MEDS: PROTONIX PO SCH ×2 (10:06→21:59)
--- NOTE | 2019-04-22 11:59 | Progress Note ---
Assessment and Plan Right foot well perfused. Able to discharge when INR 2-3. Subjective Date of service: 04/22/19 Principal diagnosis: PVD Interval history: No new complaints. Ambulating with some soreness at the incision. States he only has mild numbness/tingling at the tip of his first an second toes on the right. Objective - Constitutional Vitals: Vital Signs - 12hr 04/22/19 04/22/19 04/22/19 03:54 07:19 08:00 Temperature 98.7 F 99.0 F Pulse Rate 90 84 90 Respiratory 18 16 Rate Blood Pressure 111/69 108/71 O2 Sat by Pulse 97 95 Oximetry General appearance: Present: no acute distress Extremities: normal temperature, abnormal (incision intact without evidence of infection) Extremity abnormal: other (Right PT doppler but nonpalpable) - Labs CBC & Chem 7: 04/22/19 03:54 04/19/19 06:08 Labs: Abnormal lab results 04/19/19 04/22/19 04/22/19 Range/Units 10:05 03:54 03:54 Hgb 11.3 L (11.8-15.2) gm/dl Hct 32.9 L (35.5-45.6) % PT 15.3 H (12.2-14.9) Sec. INR 1.24 H (0.87-1.13) Crossmatch See Detail Medications & Allergies - Medications Allergies/Adverse Reactions: Allergies No Known Allergies Allergy (Verified 05/23/18 09:09) Home Medications: Home Medications Medication Instructions Recorded Confirmed Last Taken Type Pantoprazole [Protonix TAB] 40 mg PO BID #60 tablet 05/23/18 04/20/19 Unknown Rx Sucralfate [Carafate] 1 gm PO ACHS 30 Days tablet 05/23/18 04/20/19 Unknown Rx Active Medications: Generic Name Dose Route Start Last Admin Trade Name Freq PRN Reason Stop Dose Admin Acetaminophen 650 mg 04/18/19 12:36 Tylenol PO Q4H PRN Pain MILD(1-3)/Fever >100.5/CONCEPCION Albuterol 2.5 mg 04/18/19 12:36 Proventil IH Q4H PRN Shortness Of Breath Clopidogrel Bisulfate 75 mg 04/20/19 10:00 04/22/19 10:06 Plavix PO 75 mg QDAY TALIA Administration Gabapentin 300 mg 04/20/19 22:00 04/22/19 05:33 Neurontin PO 300 mg Q8HR TALIA Administration Hydromorphone HCl 1 mg 04/20/19 14:34 04/22/19 06:37 Dilaudid IV 1 mg Q4H PRN Administration Pain , Severe (7-10) Heparin Sodium/Sodium Chloride 25,000 unit in 500 mls @ 18 mls/hr 04/19/19 19:22 04/22/19 01:27 Heparin/ 0.45% Nacl-25,000 Unit/500 Ml IV 1,000 units/hr TITRATE TALIA 20 mls/hr Administration Protocol 900 UNITS/HR Ondansetron HCl 4 mg 04/18/19 12:36 Zofran IV Q8H PRN Nausea And Vomiting Oxycodone/Acetaminophen 2 tab 04/20/19 14:34 Percocet 5/325 PO Q6H PRN Pain, Moderate (4-6) Pantoprazole Sodium 40 mg 04/18/19 14:00 04/22/19 10:06 Protonix PO 40 mg BID TALIA Administration Sodium Chloride 10 ml 04/18/19 22:00 04/22/19 10:06 Sodium Chloride Flush Syringe 10 Ml IV 10 ml BID TALIA Administration Sodium Chloride 10 ml 04/18/19 12:36 04/21/19 20:18 Sodium Chloride Flush Syringe 10 Ml IV 10 ml PRN PRN Administration LINE FLUSH Sucralfate 1 gm 04/18/19 16:30 04/22/19 10:06 Carafate PO 1 gm ACHS TALIA Administration Warfarin Sodium 7.5 mg 04/20/19 17:00 04/21/19 20:09 Coumadin PO Not Given DAILY@1700 [facility] Protocol
--- NOTE | 2019-04-22 13:10 | Progress Note ---
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 Patient was non-compliant with anticoagulation per chart. Acute Right leg Limb Ischemia, s/p Open embolectomy on 04/19/2019: continue to treat with Anticoagulation, Vascular Surgeon following Abdominal aorta thrombosis s/p Endovascular repair on 04/19/2019: Vascular surgery is managing. Hypertension: continue anti-hypertensives, low salt diet Hypokalemia: repleted, monitor bmp Drop in HCT: monitor CBC closely DVT prophylaxis: Therapeutic anticoagulation, Anticipate discharge once INR is therapeutic, continue to regulated heparin IV drip and warfarin/INR History Interval history: Patient was seen and examined. Follow-up on current diagnosis of Aortic Abdominal Thrombus. No overnight events reported to me. Patient denies any chest pain, shortness breath, nausea/vomiting or severe headaches. Imaging, nursing no te, chart, labs and old chart reviewed. Discussed with patient. Hospitalist Physical - Physical exam Narrative exam: Gen: WDWN, NAD, Awake, Alert, Orientated HEENT: NCAT, EOMI, PERRL, OP Clear Neck: supple, no adenopathy, no thyromegaly, no JVD CVS/Heart: RRR, normal S1S2, pulses abnormal right leg, right foot now warm to touch Chest/Lungs: CTA B, Symmetrical chest expansion, good air entry bilaterally GI/Abdomen: soft, NTND, good bowel sounds, no guarding or rebound /Bladder: no suprapubic tenderness, no CVA or paraspinal tenderness Extermity/Skin: no c/c/e, no obvious rash MSK: FROM x 4 Neuro: CN 2-12 grossly intact, no new focal deficits Psych: calm - Constitutional Vitals: Temp Pulse Resp BP Pulse Ox 99.0 F 90 16 108/71 95 04/22/19 07:19 04/22/19 08:00 04/22/19 07:19 04/22/19 07:19 04/22/19 07:19 General appearance: Present: no acute distress Results - Labs CBC & Chem 7: 04/22/19 03:54 04/19/19 06:08 Labs: Laboratory Last Values WBC 3.8 K/mm3 (4.5-11.0) L 04/19/19 06:08 RBC 4.39 M/mm3 (3.65-5.03) 04/19/19 06:08 Hgb 11.3 gm/dl (11.8-15.2) L 04/22/19 03:54 Hct 32.9 % (35.5-45.6) L 04/22/19 03:54 MCV 90 fl (84-94) 04/19/19 06:08 MCH 31 pg (28-32) 04/19/19 06:08 MCHC 35 % (32-34) H 04/19/19 06:08 RDW 13.4 % (13.2-15.2) 04/19/19 06:08 Plt Count 192 K/mm3 (140-440) 04/22/19 03:54 Lymph % (Auto) 24.2 % (13.4-35.0) 04/19/19 06:08 [place] % (Auto) 11.9 % (0.0-7.3) H 04/19/19 06:08 Eos % (Auto) 2.2 % (0.0-4.3) 04/19/19 06:08 Baso % (Auto) 0.4 % (0.0-1.8) 04/19/19 06:08 Lymph # 0.9 K/mm3 (1.2-5.4) L 04/19/19 06:08 [place] # 0.5 K/mm3 (0.0-0.8) 04/19/19 06:08 Eos # 0.1 K/mm3 (0.0-0.4) 04/19/19 06:08 Baso # 0.0 K/mm3 (0.0-0.1) 04/19/19 06:08 Seg Neutrophils % 61.3 % (40.0-70.0) 04/19/19 06:08 Seg Neutrophils # 2.3 K/mm3 (1.8-7.7) 04/19/19 06:08 PT 15.3 Sec. (12.2-14.9) H 04/22/19 03:54 INR 1.24 (0.87-1.13) H 04/22/19 03:54 APTT 26.6 Sec. (24.2-36.6) 04/18/19 12:49 132 % normal (57-171) 04/18/19 12:56 117 % normal (70-140) 04/18/19 12:56 Antithrombin III Ag 103 % (80-120) 04/18/19 12:56 Heparin Anti-Xa Level 0.35 U.I./ml (0.3-0.7) 04/21/19 20:35 Sodium 137 mmol/L (137-145) 04/19/19 06:08 Potassium 3.3 mmol/L (3.6-5.0) L D 04/19/19 06:08 Chloride 99.6 mmol/L (98-107) 04/19/19 06:08 Carbon Dioxide 25 mmol/L (22-30) 04/19/19 06:08 16 mmol/L 04/19/19 06:08 BUN 15 mg/dL (9-20) 04/19/19 06:08 1.2 mg/dL (0.8-1.5) 04/19/19 06:08 Estimated GFR > 60 ml/min 04/19/19 06:08 13 % 04/19/19 06:08 Glucose 112 mg/dL (75-100) H 04/19/19 06:08 Calcium 8.8 mg/dL (8.4-10.2) 04/19/19 06:08 0.30 mg/dL (0.1-1.2) 04/19/19 06:08 AST 29 units/L (5-40) 04/19/19 06:08 ALT 21 units/L (7-56) 04/19/19 06:08 36 units/L (35-129) 04/19/19 06:08 344 units/L (55-170) H 04/18/19 09:44 7.1 g/dL (6.3-8.2) 04/19/19 06:08 4.0 g/dL (3.9-5) 04/19/19 06:08 1.3 % 04/19/19 06:08 Triglycerides 100 mg/dL (2-149) 04/18/19 09:40 Cholesterol 235 mg/dL (50-199) H 04/18/19 09:40 121 mg/dL (50-130) 04/18/19 09:40 110 mg/dL (40-59) H 04/18/19 09:40 2.13 % 04/18/19 09:40 Yellow (Yellow) 04/19/19 07:30 Slightly-cloudy (Clear) 04/19/19 07:30 5.0 (5.0-7.0) 04/19/19 07:30 Ur Specific [place] 1.033 (1.003-1.030) H 04/19/19 07:30 30 mg/dl mg/dL (Negative) 04/19/19 07:30 Neg mg/dL (Negative) 04/19/19 07:30 Neg mg/dL (Negative) 04/19/19 07:30 Sm (Negative) 04/19/19 07:30 Neg (Negative) 04/19/19 07:30 Neg (Negative) 04/19/19 07:30 < 2.0 mg/dL (<2.0) 04/19/19 07:30 Ur Leukocyte Esterase Neg (Negative) 04/19/19 07:30 1.0 /HPF (0.0-6.0) 04/19/19 07:30 1.0 /HPF (0.0-6.0) 04/19/19 07:30 U Epithel Cells (Auto) < 1.0 /HPF (0-13.0) 04/19/19 07:30 1+ /HPF (Negative) 04/19/19 07:30 Few /HPF 04/19/19 07:30 Presumptive negative 04/19/19 04:48 Presumptive negative 04/19/19 04:48 Ur Barbiturates Screen Presumptive negative 04/19/19 04:48 Ur Phencyclidine Scrn Presumptive negative 04/19/19 04:48 Ur Amphetamines Screen Presumptive negative 04/19/19 04:48 U Benzodiazepines Scrn Presumptive negative 04/19/19 04:48 Presumptive negative 04/19/19 04:48 U Marijuana (THC) Screen Presumptive negative 04/19/19 04:48 Disclamer 04/19/19 04:48 Blood Type A POSITIVE 04/19/19 10:05 Antibody Screen Negative 04/19/19 10:05 Crossmatch See Detail 04/19/19 10:05 Active Medications - Current Medications Current Medications: Generic Name Dose Route Start Last Admin Trade Name Freq PRN Reason Stop Dose Admin Acetaminophen 650 mg 04/18/19 12:36 Tylenol PO Q4H PRN Pain MILD(1-3)/Fever >100.5/CONCEPCION Albuterol 2.5 mg 04/18/19 12:36 Proventil IH Q4H PRN Shortness Of Breath Clopidogrel Bisulfate 75 mg 04/20/19 10:00 04/22/19 10:06 Plavix PO 75 mg QDAY TALIA Administration Gabapentin 300 mg 04/20/19 22:00 04/22/19 05:33 Neurontin PO 300 mg Q8HR TALIA Administration Hydromorphone HCl 1 mg 04/20/19 14:34 04/22/19 06:37 Dilaudid IV 1 mg Q4H PRN Administration Pain , Severe (7-10) Heparin Sodium/Sodium Chloride 25,000 unit in 500 mls @ 18 mls/hr 04/19/19 19:22 04/22/19 01:27 Heparin/ 0.45% Nacl-25,000 Unit/500 Ml IV 1,000 units/hr TITRATE TALIA 20 mls/hr Administration Protocol 900 UNITS/HR Ondansetron HCl 4 mg 04/18/19 12:36 Zofran IV Q8H PRN Nausea And Vomiting Oxycodone/Acetaminophen 2 tab 04/20/19 14:34 Percocet 5/325 PO Q6H PRN Pain, Moderate (4-6) Pantoprazole Sodium 40 mg 04/18/19 14:00 04/22/19 10:06 Protonix PO 40 mg BID TALIA Administration Sodium Chloride 10 ml 04/18/19 22:00 04/22/19 10:06 Sodium Chloride Flush Syringe 10 Ml IV 10 ml BID TALIA Administration Sodium Chloride 10 ml 04/18/19 12:36 04/21/19 20:18 Sodium Chloride Flush Syringe 10 Ml IV 10 ml PRN PRN Administration LINE FLUSH Sucralfate 1 gm 04/18/19 16:30 04/22/19 10:06 Carafate PO 1 gm ACHS TALIA Administration Warfarin Sodium 7.5 mg 04/20/19 17:00 04/21/19 20:09 Coumadin PO Not Given DAILY@1700 [facility] Protocol Nutrition/Malnutrition Assess - Dietary Evaluation Nutrition/Malnutrition Findings: Nutrition Notes Start: 04/21/19 16:11 Freq: Status: Active Protocol: Document 04/21/19 16:11 RM (Rec: 04/21/19 16:14 RM [id number]) Nutrition Notes Need for Assessment generated from: Education Initial or Follow up Assessment Other Pertinent Diagnosis GERD, Abdominal aotra thrombosis Subjective/Other Information Screened for Coumadin/Vit K diet education. Reviewed Coumadin/Vit K diet education. Gave handout. #1 Nutrition Diagnosis Food and nutrition-related knowledge deficit Etiology lack of prior education As Evidenced by Signs and Symptoms no prior knowledge of need for food and nutrition recommendations Nutrition Intervention Teaching Recipient Patient Learning Readiness Good Teaching Methods Discussion,Handout Response to Teaching Verbalize understanding Education Handouts Provided Vitamin K and medications Barriers to Learning No Barriers RD phone number provided Yes Patient aware of follow up options Yes Goal #1 Adhere to diet Revisit per MD consult or patient Sign Off request:
[2019-04-22] MEDS: COUMADIN PO SCH (16:34)
[2019-04-23] MEDS: NEURONTIN PO SCH ×4 (04:52→21:46)
[2019-04-23] MEDS: DILAUDID IV PRN ×3 (04:52→21:55)
[2019-04-23 05:36] LABS: INR 1.57 (0.87-1.13)
--- NOTE | 2019-04-23 08:39 | Progress Note ---
Assessment and Plan Discharge when INR therapeutic. Patient will need also to ambulate with physical therapy during his hospitalization. Subjective Date of service: 04/23/19 Principal diagnosis: PVD Interval history: Patient doing well. Still complaining of some pain at the MTP of the first 2 digits on the right foot. Objective - Constitutional Vitals: Vital Signs - 12hr 04/22/19 04/22/19 04/23/19 22:00 23:48 04:40 Temperature 98.2 F 98.2 F Pulse Rate 86 74 Respiratory 18 20 20 Rate Blood Pressure 121/79 113/83 O2 Sat by Pulse 96 93 Oximetry 04/23/19 07:56 Temperature 97.4 F L Pulse Rate 79 Respiratory 18 Rate Blood Pressure 110/72 O2 Sat by Pulse 96 Oximetry General appearance: Present: no acute distress - EENT Eyes: PERRL ENT: hearing intact - Neck Neck: supple, normal ROM - Respiratory Respiratory effort: normal - Breasts Breasts: deferred Extremities: abnormal - Gastrointestinal General gastrointestinal: Present: deferred Rectal Exam: deferred - Genitourinary Male genitourinary: deferred - Psychiatric Psychiatric: appropriate mood/affect, cooperative - Labs CBC & Chem 7: 04/22/19 03:54 04/19/19 06:08 Labs: Abnormal lab results 04/23/19 Range/Units 03:56 PT 18.4 H (12.2-14.9) Sec. INR 1.57 H (0.87-1.13) Medications & Allergies - Medications Allergies/Adverse Reactions: Allergies No Known Allergies Allergy (Verified 05/23/18 09:09) Home Medications: Home Medications Medication Instructions Recorded Confirmed Last Taken Type Pantoprazole [Protonix TAB] 40 mg PO BID #60 tablet 05/23/18 04/20/19 Unknown Rx Sucralfate [Carafate] 1 gm PO ACHS 30 Days tablet 05/23/18 04/20/19 Unknown Rx Active Medications: Generic Name Dose Route Start Last Admin Trade Name Freq PRN Reason Stop Dose Admin Acetaminophen 650 mg 04/18/19 12:36 Tylenol PO Q4H PRN Pain MILD(1-3)/Fever >100.5/CONCEPCION Albuterol 2.5 mg 04/18/19 12:36 Proventil IH Q4H PRN Shortness Of Breath Clopidogrel Bisulfate 75 mg 04/20/19 10:00 04/22/19 10:06 Plavix PO 75 mg QDAY TALIA Administration Gabapentin 300 mg 04/20/19 22:00 04/23/19 06:39 Neurontin PO Not Given Q8HR TALIA Hydromorphone HCl 1 mg 04/20/19 14:34 04/23/19 04:52 Dilaudid IV 1 mg Q4H PRN Administration Pain , Severe (7-10) Heparin Sodium/Sodium Chloride 25,000 unit in 500 mls @ 18 mls/hr 04/19/19 19:22 04/22/19 22:00 Heparin/ 0.45% Nacl-25,000 Unit/500 Ml IV 1,000 units/hr TITRATE TALIA 20 mls/hr Administration Protocol 900 UNITS/HR Ondansetron HCl 4 mg 04/18/19 12:36 Zofran IV Q8H PRN Nausea And Vomiting Oxycodone/Acetaminophen 2 tab 04/20/19 14:34 Percocet 5/325 PO Q6H PRN Pain, Moderate (4-6) Pantoprazole Sodium 40 mg 04/18/19 14:00 04/22/19 21:59 Protonix PO 40 mg BID TALIA Administration Sodium Chloride 10 ml 04/18/19 22:00 04/22/19 23:29 Sodium Chloride Flush Syringe 10 Ml IV Not Given BID TALIA Sodium Chloride 10 ml 04/18/19 12:36 04/21/19 20:18 Sodium Chloride Flush Syringe 10 Ml IV 10 ml PRN PRN Administration LINE FLUSH Sucralfate 1 gm 04/18/19 16:30 04/22/19 22:00 Carafate PO 1 gm ACHS TALIA Administration Warfarin Sodium 7.5 mg 04/20/19 17:00 04/22/19 16:34 Coumadin PO 7.5 mg DAILY@1700 TALIA Administration Protocol
[2019-04-23] MEDS: CARAFATE PO SCH ×4 (08:43→21:45)
[2019-04-23] MEDS: PLAVIX PO SCH (09:31)
[2019-04-23] MEDS: PROTONIX PO SCH ×2 (09:31→21:46)
[2019-04-23] MEDS: SODIUM CHLORIDE FLUSH SYRINGE 10 ML IV SCH ×2 (09:31→21:46)
--- NOTE | 2019-04-23 14:39 | Progress Note ---
Assessment and Plan Assessment and plan: Patient is a 63 yo man with a history of prior tobacco dependency, GERD and Aortic Thrombus with Renal Embolization on therapeutic anticoagulation who presented to [facility] with right leg pains. Patient was non-compliant with anticoagulation per chart. Acute Right leg Limb Ischemia, s/p Open embolectomy on 04/19/2019: continue to treat with Anticoagulation, Vascular Surgeon following Abdominal aorta thrombosis s/p Endovascular repair on 04/19/2019: Vascular surgery is managing. Hypertension: continue anti-hypertensives, low salt diet Hypokalemia: repleted, monitor bmp Drop in HCT: monitor CBC closely DVT prophylaxis: Therapeutic anticoagulation, Anticipate discharge once INR is therapeutic, continue to regulated heparin IV drip and warfarin/INR History Interval history: Patient was seen and examined. Follow-up on current diagnosis of Aortic Abdominal Thrombus. No overnight events reported to me. Patient denies any chest pain, shortness breath, nausea/vomiting or severe headaches. Imaging, nursing no te, chart, labs and old chart reviewed. Discussed with patient. Hospitalist Physical - Physical exam Narrative exam: Gen: WDWN, NAD, Awake, Alert, Orientated HEENT: NCAT, EOMI, PERRL, OP Clear Neck: supple, no adenopathy, no thyromegaly, no JVD CVS/Heart: RRR, normal S1S2, pulses abnormal right leg, right foot now warm to touch Chest/Lungs: CTA B, Symmetrical chest expansion, good air entry bilaterally GI/Abdomen: soft, NTND, good bowel sounds, no guarding or rebound /Bladder: no suprapubic tenderness, no CVA or paraspinal tenderness Extermity/Skin: no c/c/e, no obvious rash MSK: FROM x 4 Neuro: CN 2-12 grossly intact, no new focal deficits Psych: calm - Constitutional Vitals: Temp Pulse Resp BP Pulse Ox 98.4 F 81 18 112/74 97 04/23/19 11:49 04/23/19 11:49 04/23/19 11:49 04/23/19 11:49 04/23/19 11:49 General appearance: Present: no acute distress Results - Labs CBC & Chem 7: 04/22/19 03:54 04/19/19 06:08 Labs: Laboratory Last Values WBC 3.8 K/mm3 (4.5-11.0) L 04/19/19 06:08 RBC 4.39 M/mm3 (3.65-5.03) 04/19/19 06:08 Hgb 11.3 gm/dl (11.8-15.2) L 04/22/19 03:54 Hct 32.9 % (35.5-45.6) L 04/22/19 03:54 MCV 90 fl (84-94) 04/19/19 06:08 MCH 31 pg (28-32) 04/19/19 06:08 MCHC 35 % (32-34) H 04/19/19 06:08 RDW 13.4 % (13.2-15.2) 04/19/19 06:08 Plt Count 192 K/mm3 (140-440) 04/22/19 03:54 Lymph % (Auto) 24.2 % (13.4-35.0) 04/19/19 06:08 [place] % (Auto) 11.9 % (0.0-7.3) H 04/19/19 06:08 Eos % (Auto) 2.2 % (0.0-4.3) 04/19/19 06:08 Baso % (Auto) 0.4 % (0.0-1.8) 04/19/19 06:08 Lymph # 0.9 K/mm3 (1.2-5.4) L 04/19/19 06:08 [place] # 0.5 K/mm3 (0.0-0.8) 04/19/19 06:08 Eos # 0.1 K/mm3 (0.0-0.4) 04/19/19 06:08 Baso # 0.0 K/mm3 (0.0-0.1) 04/19/19 06:08 Seg Neutrophils % 61.3 % (40.0-70.0) 04/19/19 06:08 Seg Neutrophils # 2.3 K/mm3 (1.8-7.7) 04/19/19 06:08 PT 18.4 Sec. (12.2-14.9) H 04/23/19 03:56 INR 1.57 (0.87-1.13) H 04/23/19 03:56 APTT 26.6 Sec. (24.2-36.6) 04/18/19 12:49 113 % (70-140) 04/18/19 12:56 132 % normal (57-171) 04/18/19 12:56 117 % normal (70-140) 04/18/19 12:56 Antithrombin III Ag 103 % (80-120) 04/18/19 12:56 Heparin Anti-Xa Level 0.32 U.I./ml (0.3-0.7) 04/22/19 20:27 Sodium 137 mmol/L (137-145) 04/19/19 06:08 Potassium 3.3 mmol/L (3.6-5.0) L D 04/19/19 06:08 Chloride 99.6 mmol/L (98-107) 04/19/19 06:08 Carbon Dioxide 25 mmol/L (22-30) 04/19/19 06:08 16 mmol/L 04/19/19 06:08 BUN 15 mg/dL (9-20) 04/19/19 06:08 1.2 mg/dL (0.8-1.5) 04/19/19 06:08 Estimated GFR > 60 ml/min 04/19/19 06:08 13 % 04/19/19 06:08 Glucose 112 mg/dL (75-100) H 04/19/19 06:08 Calcium 8.8 mg/dL (8.4-10.2) 04/19/19 06:08 0.30 mg/dL (0.1-1.2) 04/19/19 06:08 AST 29 units/L (5-40) 04/19/19 06:08 ALT 21 units/L (7-56) 04/19/19 06:08 36 units/L (35-129) 04/19/19 06:08 344 units/L (55-170) H 04/18/19 09:44 7.1 g/dL (6.3-8.2) 04/19/19 06:08 4.0 g/dL (3.9-5) 04/19/19 06:08 1.3 % 04/19/19 06:08 Triglycerides 100 mg/dL (2-149) 04/18/19 09:40 Cholesterol 235 mg/dL (50-199) H 04/18/19 09:40 121 mg/dL (50-130) 04/18/19 09:40 110 mg/dL (40-59) H 04/18/19 09:40 2.13 % 04/18/19 09:40 Yellow (Yellow) 04/19/19 07:30 Slightly-cloudy (Clear) 04/19/19 07:30 5.0 (5.0-7.0) 04/19/19 07:30 Ur Specific [place] 1.033 (1.003-1.030) H 04/19/19 07:30 30 mg/dl mg/dL (Negative) 04/19/19 07:30 Neg mg/dL (Negative) 04/19/19 07:30 Neg mg/dL (Negative) 04/19/19 07:30 Sm (Negative) 04/19/19 07:30 Neg (Negative) 04/19/19 07:30 Neg (Negative) 04/19/19 07:30 < 2.0 mg/dL (<2.0) 04/19/19 07:30 Ur Leukocyte Esterase Neg (Negative) 04/19/19 07:30 1.0 /HPF (0.0-6.0) 04/19/19 07:30 1.0 /HPF (0.0-6.0) 04/19/19 07:30 U Epithel Cells (Auto) < 1.0 /HPF (0-13.0) 04/19/19 07:30 1+ /HPF (Negative) 04/19/19 07:30 Few /HPF 04/19/19 07:30 Presumptive negative 04/19/19 04:48 Presumptive negative 04/19/19 04:48 Ur Barbiturates Screen Presumptive negative 04/19/19 04:48 Ur Phencyclidine Scrn Presumptive negative 04/19/19 04:48 Ur Amphetamines Screen Presumptive negative 04/19/19 04:48 U Benzodiazepines Scrn Presumptive negative 04/19/19 04:48 Presumptive negative 04/19/19 04:48 U Marijuana (THC) Screen Presumptive negative 04/19/19 04:48 Disclamer 04/19/19 04:48 Blood Type A POSITIVE 04/19/19 10:05 Antibody Screen Negative 04/19/19 10:05 Crossmatch See Detail 04/19/19 10:05 Active Medications - Current Medications Current Medications: Generic Name Dose Route Start Last Admin Trade Name Freq PRN Reason Stop Dose Admin Acetaminophen 650 mg 06/30/19 12:36 Tylenol PO Q4H PRN Pain MILD(1-3)/Fever >100.5/CONCEPCION Albuterol 2.5 mg 04/18/19 12:36 Proventil IH Q4H PRN Shortness Of Breath Clopidogrel Bisulfate 75 mg 04/20/19 10:00 04/23/19 09:31 Plavix PO 75 mg QDAY TALIA Administration Gabapentin 300 mg 04/20/19 22:00 04/23/19 13:37 Neurontin PO 300 mg Q8HR TALIA Administration Hydromorphone HCl 1 mg 04/20/19 14:34 04/23/19 12:37 Dilaudid IV 1 mg Q4H PRN Administration Pain , Severe (7-10) Heparin Sodium/Sodium Chloride 25,000 unit in 500 mls @ 18 mls/hr 04/19/19 19:22 04/22/19 22:00 Heparin/ 0.45% Nacl-25,000 Unit/500 Ml IV 1,000 units/hr TITRATE TALIA 20 mls/hr Administration Protocol 900 UNITS/HR Ondansetron HCl 4 mg 04/18/19 12:36 Zofran IV Q8H PRN Nausea And Vomiting Oxycodone/Acetaminophen 2 tab 04/20/19 14:34 Percocet 5/325 PO Q6H PRN Pain, Moderate (4-6) Pantoprazole Sodium 40 mg 04/18/19 14:00 04/23/19 09:31 Protonix PO 40 mg BID TALIA Administration Sodium Chloride 10 ml 04/18/19 22:00 04/23/19 09:31 Sodium Chloride Flush Syringe 10 Ml IV 10 ml BID TALIA Administration Sodium Chloride 10 ml 04/18/19 12:36 04/21/19 20:18 Sodium Chloride Flush Syringe 10 Ml IV 10 ml PRN PRN Administration LINE FLUSH Sucralfate 1 gm 04/18/19 16:30 04/23/19 11:41 Carafate PO 1 gm ACHS TALIA Administration Warfarin Sodium 7.5 mg 04/20/19 17:00 04/22/19 16:34 Coumadin PO 7.5 mg DAILY@1700 TALIA Administration Protocol Nutrition/Malnutrition Assess - Dietary Evaluation Nutrition/Malnutrition Findings: Nutrition Notes Start: 04/21/19 16:11 Freq: Status: Active Protocol: Document 04/21/19 16:11 RM (Rec: 04/21/19 16:14 RM [id number]) Nutrition Notes Need for Assessment generated from: Education Initial or Follow up Assessment Other Pertinent Diagnosis GERD, Abdominal aotra thrombosis Subjective/Other Information Screened for Coumadin/Vit K diet education. Reviewed Coumadin/Vit K diet education. Gave handout. #1 Nutrition Diagnosis Food and nutrition-related knowledge deficit Etiology lack of prior education As Evidenced by Signs and Symptoms no prior knowledge of need for food and nutrition recommendations Nutrition Intervention Teaching Recipient Patient Learning Readiness Good Teaching Methods Discussion,Handout Response to Teaching Verbalize understanding Education Handouts Provided Vitamin K and medications Barriers to Learning No Barriers RD phone number provided Yes Patient aware of follow up options Yes Goal #1 Adhere to diet Revisit per MD consult or patient Sign Off request:
[2019-04-23] MEDS: COUMADIN PO SCH (16:39)
[2019-04-24] MEDS: HEPARIN/ 0.45% NACL-25,000 UNIT/500 ML 25,000 UNIT/500 ML BAG IV SCH (02:54)
[2019-04-24] MEDS: DILAUDID IV PRN ×2 (04:00→08:52)
[2019-04-24] MEDS: NEURONTIN PO SCH ×3 (05:36→21:30)
[2019-04-24 05:57] LABS: Hematocrit 31.2 % (35.5-45.6); Hemoglobin 10.7 gm/dl (11.8-15.2)
[2019-04-24 06:05] LABS: INR 1.81 (0.87-1.13)
[2019-04-24] MEDS: SODIUM CHLORIDE FLUSH SYRINGE 10 ML IV SCH ×2 (09:00→21:31)
[2019-04-24] MEDS: PLAVIX PO SCH (09:00)
[2019-04-24] MEDS: PROTONIX PO SCH ×2 (09:00→21:30)
[2019-04-24] MEDS: CARAFATE PO SCH ×4 (09:00→21:30)
--- NOTE | 2019-04-24 14:41 | Progress Note ---
Assessment and Plan Right foot well perfused. D/C when INR is 2-3. Follow up in my office in 2 weeks. Subjective Date of service: 04/24/19 Principal diagnosis: PVD Interval history: no new complaints. Objective - Constitutional Vitals: Vital Signs - 12hr 04/24/19 04/24/19 03:51 07:39 Temperature 97.9 F 98.1 F Pulse Rate 84 Respiratory 20 18 Rate Blood Pressure 109/70 108/87 O2 Sat by Pulse 96 Oximetry Extremities: normal temperature, abnormal (incision intact) - Labs CBC & Chem 7: 04/24/19 04:14 04/19/19 06:08 Labs: Abnormal lab results 04/23/19 04/24/19 04/24/19 Range/Units 20:54 04:14 04:14 Hgb 10.7 L (11.8-15.2) gm/dl Hct 31.2 L (35.5-45.6) % PT 20.6 H (12.2-14.9) Sec. INR 1.81 H (0.87-1.13) Heparin Anti-Xa Level 0.18 L 0.18 L (0.3-0.7) U.I./ml 04/24/19 Range/Units 13:28 Hgb (11.8-15.2) gm/dl Hct (35.5-45.6) % PT (12.2-14.9) Sec. INR (0.87-1.13) Heparin Anti-Xa Level 0.19 L (0.3-0.7) U.I./ml Medications & Allergies - Medications Allergies/Adverse Reactions: Allergies No Known Allergies Allergy (Verified 05/23/18 09:09) Home Medications: Home Medications Medication Instructions Recorded Confirmed Last Taken Type Pantoprazole [Protonix TAB] 40 mg PO BID #60 tablet 05/23/18 04/20/19 Unknown Rx Sucralfate [Carafate] 1 gm PO ACHS 30 Days tablet 05/23/18 04/20/19 Unknown Rx Active Medications: Generic Name Dose Route Start Last Admin Trade Name Freq PRN Reason Stop Dose Admin Acetaminophen 650 mg 04/18/19 12:36 Tylenol PO Q4H PRN Pain MILD(1-3)/Fever >100.5/CONCEPCION Albuterol 2.5 mg 04/18/19 12:36 Proventil IH Q4H PRN Shortness Of Breath Clopidogrel Bisulfate 75 mg 04/20/19 10:00 04/24/19 09:00 Plavix PO 75 mg QDAY TALIA Administration Gabapentin 300 mg 04/20/19 22:00 04/24/19 05:36 Neurontin PO 300 mg Q8HR TALIA Administration Hydromorphone HCl 1 mg 04/20/19 14:34 04/24/19 08:52 Dilaudid IV 1 mg Q4H PRN Administration Pain , Severe (7-10) Heparin Sodium/Sodium Chloride 25,000 unit in 500 mls @ 18 mls/hr 04/19/19 19:22 04/24/19 06:59 Heparin/ 0.45% Nacl-25,000 Unit/500 Ml IV 1,100 units/hr TITRATE TALIA 22 mls/hr Titration Protocol 900 UNITS/HR Ondansetron HCl 4 mg 04/18/19 12:36 Zofran IV Q8H PRN Nausea And Vomiting Oxycodone/Acetaminophen 2 tab 04/20/19 14:34 Percocet 5/325 PO Q6H PRN Pain, Moderate (4-6) Pantoprazole Sodium 40 mg 04/18/19 14:00 04/24/19 09:00 Protonix PO 40 mg BID TALIA Administration Sodium Chloride 10 ml 04/18/19 22:00 04/24/19 09:00 Sodium Chloride Flush Syringe 10 Ml IV 10 ml BID TALIA Administration Sodium Chloride 10 ml 04/18/19 12:36 04/21/19 20:18 Sodium Chloride Flush Syringe 10 Ml IV 10 ml PRN PRN Administration LINE FLUSH Sucralfate 1 gm 04/18/19 16:30 04/24/19 09:00 Carafate PO 1 gm ACHS TALIA Administration Warfarin Sodium 7.5 mg 04/20/19 17:00 04/23/19 16:39 Coumadin PO 7.5 mg DAILY@1700 TALIA Administration Protocol
--- NOTE | 2019-04-24 15:15 | Progress Note ---
Assessment and Plan Assessment and plan: Patient is a 63 yo man with a history of prior tobacco dependency, GERD and Aortic Thrombus with Renal Embolization on therapeutic anticoagulation who presented to [facility] ED with right leg pains. Patient was non-compliant with anticoagulation per chart. Acute Right leg Limb Ischemia, s/p Open embolectomy on 04/19/2019: continue to treat with Anticoagulation, Vascular Surgeon following Abdominal aorta thrombosis s/p Endovascular repair on 04/19/2019: Vascular surgery is managing. Hypertension: continue anti-hypertensives, low salt diet Hypokalemia: repleted, monitor bmp Drop in HCT: monitor CBC closely DVT prophylaxis: Therapeutic anticoagulation, Anticipate discharge once INR is therapeutic, continue to regulated heparin IV drip and warfarin/INR History Interval history: Patient was seen and examined. Follow-up on current diagnosis of Aortic Abdominal Thrombus. No overnight events reported to me. Patient denies any chest pain, shortness breath, nausea/vomiting or severe headaches. Imaging, nursing no te, chart, labs and old chart reviewed. Discussed with patient. Hospitalist Physical - Physical exam Narrative exam: Gen: WDWN, NAD, Awake, Alert, Orientated HEENT: NCAT, EOMI, PERRL, OP Clear Neck: supple, no adenopathy, no thyromegaly, no JVD CVS/Heart: RRR, normal S1S2, pulses abnormal right leg, right foot now warm to touch Chest/Lungs: CTA B, Symmetrical chest expansion, good air entry bilaterally GI/Abdomen: soft, NTND, good bowel sounds, no guarding or rebound /Bladder: no suprapubic tenderness, no CVA or paraspinal tenderness Extermity/Skin: no c/c/e, no obvious rash MSK: FROM x 4 Neuro: CN 2-12 grossly intact, no new focal deficits Psych: calm - Constitutional Vitals: Temp Pulse Resp BP Pulse Ox 98.1 F 84 18 108/87 96 04/24/19 07:39 04/24/19 03:51 04/24/19 07:39 04/24/19 07:39 04/24/19 03:51 General appearance: Present: no acute distress Results - Labs CBC & Chem 7: 04/24/19 04:14 04/19/19 06:08 Labs: Laboratory Last Values WBC 3.8 K/mm3 (4.5-11.0) L 04/19/19 06:08 RBC 4.39 M/mm3 (3.65-5.03) 04/19/19 06:08 Hgb 10.7 gm/dl (11.8-15.2) L 04/24/19 04:14 Hct 31.2 % (35.5-45.6) L 04/24/19 04:14 MCV 90 fl (84-94) 04/19/19 06:08 MCH 31 pg (28-32) 04/19/19 06:08 MCHC 35 % (32-34) H 04/19/19 06:08 RDW 13.4 % (13.2-15.2) 04/19/19 06:08 Plt Count 259 K/mm3 (140-440) 04/24/19 04:14 Lymph % (Auto) 24.2 % (13.4-35.0) 04/19/19 06:08 [place] % (Auto) 11.9 % (0.0-7.3) H 04/19/19 06:08 Eos % (Auto) 2.2 % (0.0-4.3) 04/19/19 06:08 Baso % (Auto) 0.4 % (0.0-1.8) 04/19/19 06:08 Lymph # 0.9 K/mm3 (1.2-5.4) L 04/19/19 06:08 [place] # 0.5 K/mm3 (0.0-0.8) 04/19/19 06:08 Eos # 0.1 K/mm3 (0.0-0.4) 04/19/19 06:08 Baso # 0.0 K/mm3 (0.0-0.1) 04/19/19 06:08 Seg Neutrophils % 61.3 % (40.0-70.0) 04/19/19 06:08 Seg Neutrophils # 2.3 K/mm3 (1.8-7.7) 04/19/19 06:08 PT 20.6 Sec. (12.2-14.9) H 04/24/19 04:14 INR 1.81 (0.87-1.13) H 04/24/19 04:14 APTT 26.6 Sec. (24.2-36.6) 04/18/19 12:49 113 % (70-140) 04/18/19 12:56 132 % normal (57-171) 04/18/19 12:56 117 % normal (70-140) 04/18/19 12:56 Antithrombin III Ag 103 % (80-120) 04/18/19 12:56 Heparin Anti-Xa Level 0.19 U.I./ml (0.3-0.7) L 04/24/19 13:28 Sodium 137 mmol/L (137-145) 04/19/19 06:08 Potassium 3.3 mmol/L (3.6-5.0) L D 04/19/19 06:08 Chloride 99.6 mmol/L (98-107) 04/19/19 06:08 Carbon Dioxide 25 mmol/L (22-30) 04/19/19 06:08 16 mmol/L 04/19/19 06:08 BUN 15 mg/dL (9-20) 04/19/19 06:08 1.2 mg/dL (0.8-1.5) 04/19/19 06:08 Estimated GFR > 60 ml/min 04/19/19 06:08 13 % 04/19/19 06:08 Glucose 112 mg/dL (75-100) H 04/19/19 06:08 Calcium 8.8 mg/dL (8.4-10.2) 04/19/19 06:08 0.30 mg/dL (0.1-1.2) 04/19/19 06:08 AST 29 units/L (5-40) 04/19/19 06:08 ALT 21 units/L (7-56) 04/19/19 06:08 36 units/L (35-129) 04/19/19 06:08 344 units/L (55-170) H 04/18/19 09:44 7.1 g/dL (6.3-8.2) 04/19/19 06:08 4.0 g/dL (3.9-5) 04/19/19 06:08 1.3 % 04/19/19 06:08 Triglycerides 100 mg/dL (2-149) 04/18/19 09:40 Cholesterol 235 mg/dL (50-199) H 04/18/19 09:40 121 mg/dL (50-130) 04/18/19 09:40 110 mg/dL (40-59) H 04/18/19 09:40 2.13 % 04/18/19 09:40 Yellow (Yellow) 04/19/19 07:30 Slightly-cloudy (Clear) 04/19/19 07:30 5.0 (5.0-7.0) 04/19/19 07:30 Ur Specific [place] 1.033 (1.003-1.030) H 04/19/19 07:30 30 mg/dl mg/dL (Negative) 04/19/19 07:30 Neg mg/dL (Negative) 04/19/19 07:30 Neg mg/dL (Negative) 04/19/19 07:30 Sm (Negative) 04/19/19 07:30 Neg (Negative) 04/19/19 07:30 Neg (Negative) 04/19/19 07:30 < 2.0 mg/dL (<2.0) 04/19/19 07:30 Ur Leukocyte Esterase Neg (Negative) 04/19/19 07:30 1.0 /HPF (0.0-6.0) 04/19/19 07:30 1.0 /HPF (0.0-6.0) 04/19/19 07:30 U Epithel Cells (Auto) < 1.0 /HPF (0-13.0) 04/19/19 07:30 1+ /HPF (Negative) 04/19/19 07:30 Few /HPF 04/19/19 07:30 Presumptive negative 04/19/19 04:48 Presumptive negative 04/19/19 04:48 Ur Barbiturates Screen Presumptive negative 04/19/19 04:48 Ur Phencyclidine Scrn Presumptive negative 04/19/19 04:48 Ur Amphetamines Screen Presumptive negative 04/19/19 04:48 U Benzodiazepines Scrn Presumptive negative 04/19/19 04:48 Presumptive negative 04/19/19 04:48 U Marijuana (THC) Screen Presumptive negative 04/19/19 04:48 Disclamer 04/19/19 04:48 Blood Type A POSITIVE 04/19/19 10:05 Antibody Screen Negative 04/19/19 10:05 Crossmatch See Detail 04/19/19 10:05 Active Medications - Current Medications Current Medications: Generic Name Dose Route Start Last Admin Trade Name Freq PRN Reason Stop Dose Admin Acetaminophen 650 mg 04/18/19 12:36 Tylenol PO Q4H PRN Pain MILD(1-3)/Fever >100.5/CONCEPCION Acetaminophen/Hydrocodone Bitart 1 each 04/24/19 14:42 [place] 7.5/325 PO Q6H PRN Pain, Moderate (4-6) Albuterol 2.5 mg 04/18/19 12:36 Proventil IH Q4H PRN Shortness Of Breath Clopidogrel Bisulfate 75 mg 04/20/19 10:00 04/24/19 09:00 Plavix PO 75 mg QDAY TALIA Administration Gabapentin 300 mg 04/20/19 22:00 04/24/19 05:36 Neurontin PO 300 mg Q8HR TALIA Administration Heparin Sodium/Sodium Chloride 25,000 unit in 500 mls @ 18 mls/hr 04/19/19 19:22 04/24/19 06:59 Heparin/ 0.45% Nacl-25,000 Unit/500 Ml IV 1,100 units/hr TITRATE TALIA 22 mls/hr Titration Protocol 900 UNITS/HR Ondansetron HCl 4 mg 04/18/19 12:36 Zofran IV Q8H PRN Nausea And Vomiting Pantoprazole Sodium 40 mg 04/18/19 14:00 04/24/19 09:00 Protonix PO 40 mg BID TALIA Administration Sodium Chloride 10 ml 04/18/19 22:00 04/24/19 09:00 Sodium Chloride Flush Syringe 10 Ml IV 10 ml BID TALIA Administration Sodium Chloride 10 ml 04/18/19 12:36 04/21/19 20:18 Sodium Chloride Flush Syringe 10 Ml IV 10 ml PRN PRN Administration LINE FLUSH Sucralfate 1 gm 04/18/19 16:30 04/24/19 09:00 Carafate PO 1 gm ACHS TALIA Administration Warfarin Sodium 7.5 mg 04/20/19 17:00 04/23/19 16:39 Coumadin PO 7.5 mg DAILY@1700 TALIA Administration Protocol Nutrition/Malnutrition Assess - Dietary Evaluation Nutrition/Malnutrition Findings: Nutrition Notes Start: 04/21/19 16:11 Freq: Status: Active Protocol: Document 04/23/19 18:53 RM (Rec: 04/23/19 18:54 RM [id number]) Nutrition Notes Need for Assessment generated from: LOS Initial or Follow up Brief Note Height 5 ft 9 in Weight 61.8 kg [place] Body Weight (kg) 72.72 BMI 20.1 Subjective/Other Information Screened for LOS. Recorded PO intake 81% X 4 meals. Nutrition Intervention Revisit per MD consult or patient Sign Off request:
[2019-04-24] MEDS: NORCO 7.5/325 PO PRN ×2 (16:30→23:18)
[2019-04-24] MEDS: COUMADIN PO SCH (16:35)
[2019-04-25 04:56] LABS: INR 2.38 (0.87-1.13)
[2019-04-25] MEDS: NEURONTIN PO SCH ×2 (05:11→12:59)
[2019-04-25] MEDS: HEPARIN/ 0.45% NACL-25,000 UNIT/500 ML 25,000 UNIT/500 ML BAG IV SCH (06:15)
[2019-04-25 08:26] VITALS: BP 113/75
[2019-04-25] MEDS: PROTONIX PO SCH (10:31)
[2019-04-25] MEDS: NORCO 7.5/325 PO PRN (10:31)
[2019-04-25] MEDS: PLAVIX PO SCH (10:31)
[2019-04-25] MEDS: CARAFATE PO SCH ×3 (10:31→17:26)
[2019-04-25] MEDS: SODIUM CHLORIDE FLUSH SYRINGE 10 ML IV SCH (10:36)
--- NOTE | 2019-04-25 12:20 | Progress Note ---
Assessment and Plan OK to D/C, Follow-up in 2 weeks in our office. Subjective Date of service: 04/25/19 Principal diagnosis: PVD Interval history: S/P revasc, INR therapeutic Objective - Constitutional Vitals: Vital Signs - 12hr 04/25/19 04/25/19 04/25/19 00:29 04:00 05:04 Temperature 98.1 F 97.9 F Pulse Rate 93 H 78 85 Pulse Rate [ From Monitor] Respiratory 20 20 Rate Blood Pressure 126/71 107/69 O2 Sat by Pulse 91 93 Oximetry 04/25/19 04/25/19 07:56 10:00 Temperature 98.6 F Pulse Rate Pulse Rate [ 85 From Monitor] Respiratory 18 18 Rate Blood Pressure 113/75 O2 Sat by Pulse 100 Oximetry General appearance: Present: no acute distress - EENT Eyes: PERRL ENT: hearing intact - Neck Neck: supple, normal ROM - Respiratory Respiratory effort: normal - Breasts Breasts: deferred Extremities: abnormal (post surgical) Extremity abnormal: edema - Gastrointestinal General gastrointestinal: Present: deferred Rectal Exam: deferred - Genitourinary Male genitourinary: deferred - Neurologic Neurologic: no focal deficits - Psychiatric Psychiatric: appropriate mood/affect, cooperative - Labs CBC & Chem 7: 04/24/19 04:14 04/19/19 06:08 Labs: Abnormal lab results 04/24/19 04/24/19 04/25/19 Range/Units 13:28 20:07 04:07 PT 25.5 H (12.2-14.9) Sec. INR 2.38 H (0.87-1.13) Heparin Anti-Xa Level 0.19 L 0.29 L (0.3-0.7) U.I./ml Medications & Allergies - Medications Allergies/Adverse Reactions: Allergies No Known Allergies Allergy (Verified 05/23/18 09:09) Home Medications: Home Medications Medication Instructions Recorded Confirmed Last Taken Type Pantoprazole [Protonix TAB] 40 mg PO BID #60 tablet 05/23/18 04/20/19 Unknown Rx Sucralfate [Carafate] 1 gm PO ACHS 30 Days tablet 05/23/18 04/20/19 Unknown Rx HYDROcodone/APAP 10-325 [[place] 1 each PO Q6HR PRN #40 tablet 04/25/19 Unknown Rx 10/325] Active Medications: Generic Name Dose Route Start Last Admin Trade Name Freq PRN Reason Stop Dose Admin Acetaminophen 650 mg 04/18/19 12:36 Tylenol PO Q4H PRN Pain MILD(1-3)/Fever >100.5/CONCEPCION Acetaminophen/Hydrocodone Bitart 1 each 04/24/19 14:42 04/25/19 10:31 [place] 7.5/325 PO 1 each Q6H PRN Administration Pain, Moderate (4-6) Albuterol 2.5 mg 04/18/19 12:36 Proventil IH Q4H PRN Shortness Of Breath Clopidogrel Bisulfate 75 mg 04/20/19 10:00 04/25/19 10:31 Plavix PO 75 mg QDAY TALIA Administration Gabapentin 300 mg 04/20/19 22:00 04/25/19 05:11 Neurontin PO 300 mg Q8HR TALIA Administration Ondansetron HCl 4 mg 04/18/19 12:36 Zofran IV Q8H PRN Nausea And Vomiting Pantoprazole Sodium 40 mg 04/18/19 14:00 04/25/19 10:31 Protonix PO 40 mg BID TALIA Administration Sodium Chloride 10 ml 04/18/19 22:00 04/25/19 10:36 Sodium Chloride Flush Syringe 10 Ml IV 10 ml BID TALIA Administration Sodium Chloride 10 ml 04/18/19 12:36 04/21/19 20:18 Sodium Chloride Flush Syringe 10 Ml IV 10 ml PRN PRN Administration LINE FLUSH Sucralfate 1 gm 04/18/19 16:30 04/25/19 10:31 Carafate PO 1 gm ACHS TALIA Administration Warfarin Sodium 3 mg 04/25/19 17:00 Coumadin PO DAILY@1700 [facility]
--- NOTE | 2019-04-25 15:40 | Discharge Summary ---
Providers - Providers Date of Admission: 04/18/19 15:10 Date of discharge: 04/25/19 Attending physician: BARTOLO OROPEZA 04/20/19 09:03 Physical Therapy Evaluation and Treat [CONS] Routine Comment: Reason For Exam: Weakness [facility] Condition: Stable Hospital course: Patient is a 63 yo man with a history of prior tobacco dependency, GERD and Aortic Thrombus with Renal Embolization on therapeutic anticoagulation who presented to [facility] ED with right leg pains. Patient was non-compliant with anticoagulation per chart. Acute Right leg Limb Ischemia, s/p Open embolectomy on 04/19/2019: continue to treat with Anticoagulation, Vascular Surgeon following Abdominal aorta thrombosis s/p Endovascular repair on 04/19/2019: Vascular surgery is managing. Hypertension: continue anti-hypertensives, low salt diet Hypokalemia: repleted, monitor bmp Drop in HCT: monitor CBC closely DVT prophylaxis: Therapeutic anticoagulation, Disposition: DC-01 TO HOME OR SELFCARE Time spent for discharge: 39 minutes Core Measure Documentation - Palliative Care Palliative Care/ Comfort Measures: Not Applicable - Core Measures Any of the following diagnoses?: none - VTE Discharge Requirements Deep Vein Thrombosis/Pulmonary Embolism Present on Admission: No Has pt received <5 days of overlap therapy or INR<2.0: No Anticoagulant overlap therapy prescribed at discharge: No Contraindication No Overlap Therapy order at DC: Not Indicated Exam - Physical Exam Narrative exam: Gen: WDWN, NAD, Awake, Alert, Orientated HEENT: NCAT, EOMI, PERRL, OP Clear Neck: supple, no adenopathy, no thyromegaly, no JVD CVS/Heart: RRR, normal S1S2, pulses abnormal right leg, right foot now warm to touch Chest/Lungs: CTA B, Symmetrical chest expansion, good air entry bilaterally GI/Abdomen: soft, NTND, good bowel sounds, no guarding or rebound /Bladder: no suprapubic tenderness, no CVA or paraspinal tenderness Extermity/Skin: no c/c/e, no obvious rash MSK: FROM x 4 Neuro: CN 2-12 grossly intact, no new focal deficits Psych: calm - Constitutional Vitals: Temp Pulse Resp BP Pulse Ox 98.6 F 85 18 113/75 100 04/25/19 07:56 04/25/19 10:00 04/25/19 10:00 04/25/19 07:56 04/25/19 10:00 Plan Activity: other (no strenous activity activity including work unless cleared by Dr. Jaya Marrero) Diet: low salt Additional Instructions: Call Dr. Jaya Marrero tomorrow. to follow up Warfarin level/INR in 1-2 days. [address] [place] [address]. Follow up with: GAIL DIXONSAN DIEGO MD MARYJANE [Primary Care Provider] - 3-5 Days JAYA MARRERO MD [Staff Physician] - 7 Days Forms: Warfarin Discharge Instruction Prescriptions: Warfarin [Coumadin] 3 mg PO DAILY@1700 #30 tablet Gabapentin [Neurontin] 300 mg PO TID #90 capsule HYDROcodone/APAP 10-325 [[place] 10/325] 1 each PO Q6HR PRN #40 tablet PRN Reason: Pain Clopidogrel [Plavix] 75 mg PO QDAY #30 tablet
[2019-04-25] MEDS ORDERED: COUMADIN PO SCH (17:00)
== END 2019-04-25 17:30 | disposition home or self-care (01) | DRG 269 ==
LOC: ED 08:21 → 3B-SURG 15:10 → CC1 04-19 18:47 → 4A 04-20 16:42
PROVIDERS: ADMIT Internal Medicine; ATTEND Internal Medicine
PROC: 04V03D6 (ICD-10-PCS; principal; 2019-04-19)
PROC: 047D3DZ Dilation of Left Common Iliac Artery with Intraluminal Device, Percutaneous Approach (ICD-10-PCS; 2019-04-19)
PROC: 04CM0ZZ Extirpation of Matter from Right Popliteal Artery, Open Approach (ICD-10-PCS; 2019-04-19)
PROC: 04CP0ZZ Extirpation of Matter from Right Anterior Tibial Artery, Open Approach (ICD-10-PCS; 2019-04-19)
PROC: 04CT0ZZ Extirpation of Matter from Right Peroneal Artery, Open Approach (ICD-10-PCS; 2019-04-19)
PROC: B44LZZZ Ultrasonography of Femoral Artery (ICD-10-PCS; 2019-04-19)
PROC: B41D1ZZ Fluoroscopy of Aorta and Bilateral Lower Extremity Arteries using Low Osmolar Contrast (ICD-10-PCS; 2019-04-19)
DX: I74.09 Other arterial embolism and thrombosis of abdominal aorta (principal); I74.3 Embolism and thrombosis of arteries of the lower extremities; R71.0 Precipitous drop in hematocrit; N28.0 Ischemia and infarction of kidney; Q21.1 Atrial septal defect; I70.221 Atherosclerosis of native arteries of extremities with rest pain, right leg; I71.4 Abdominal aortic aneurysm, without rupture; K21.9 Gastro-esophageal reflux disease without esophagitis; I10 Essential (primary) hypertension; E87.6 Hypokalemia; Z82.49 Family history of ischemic heart disease and other diseases of the circulatory system; Z91.14 Patient's other noncompliance with medication regimen; Z79.01 Long term (current) use of anticoagulants; Z79.899 Other long term (current) drug therapy; Z72.89 Other problems related to lifestyle; Z87.891 Personal history of nicotine dependence
CPT/HCPCS: 36415; 36620; 71275; 75635; 80053; 80061; 80307; 81001; 82550; 85014; 85018; 85025; 85049; 85220; 85301; 85305; 85520; 85610; 85730; 86850; 86900; 86901; 86920; 88304; 93005; 93010; 93306; 93925; 93970; 94760; 96374; 99285; G0378; C1725; C1757; C1760; C1768; C1769; C1876; C1887; C1894; J0690; J1100; J1170; J1644; J2250; J2370; J2405; J2704; J2710; J2720; J2785; J7030; J7050; Q9966; Q9967

== ENCOUNTER 2022-04-23 08:44 | Emergency (ER) | payer MEDICARE ==
[2022-04-23 09:07] VITALS: BP 139/93
[2022-04-23] MEDS ORDERED: KETOROLAC 10 MG TAB PO ONE (10:27)
[2022-04-23] MEDS ORDERED: TETANUS,DIPH,PERTUSS(ACELL) VACCINE 0.5 ML SYRINGE IM ONE (10:27)
[2022-04-23] MEDS ORDERED: LIDOCAINE-MPF (1%) 10 MG/1 ML VIAL 5 ML INFILTRATI ONE (10:27)
--- NOTE | 2022-04-23 12:00 | Emergency Department Report ---
- General Chief Complaint: Wound/Laceration Stated Complaint: THUMB LAC Time Seen by Provider: 04/23/22 09:47 Source: patient Mode of arrival: Ambulatory Limitations: No Limitations - History of Present Illness Initial Comments: 66 yo black male with no pmh presents to ed for evaluation of left thumb laceration. He states that a piece of metal fell onto his thumb and cut him. Mi nimal bleeding noted. -: Sudden, hour(s) Extremity Location: Left: Hand (thumb) Place: work Patient Tetanus UTD: No Context: accidental Associated Symptoms: pain. denies: loss of feeling/numbness, suspect foreign body present, unable to move injured part, weakness followed by dizziness, nausea/vomiting, fever Treatments Prior to Arrival: bandage - Related Data Previous Rx's Medication Instructions Recorded Last Taken Type Clopidogrel [Plavix] 75 mg PO QDAY #30 tablet 04/25/19 Unknown Rx Apixaban [Eliquis] 5 mg PO BID #60 05/26/20 Unknown Rx Gabapentin 600 mg PO TID #90 capsule 05/26/20 Unknown Rx Allergies Allergy/AdvReac Type Severity Reaction Status Date / Time No Known Allergies Allergy Verified 05/24/20 12:29 ED Review of Systems ROS: Stated complaint: THUMB LAC Other details as noted in HPI Comment: All other systems reviewed and negative Constitutional: denies: fever Respiratory: denies: shortness of breath Cardiovascular: denies: chest pain Gastrointestinal: denies: abdominal pain ED Past Medical Hx - Past Medical History Hx Hypertension: Yes Hx Heart Attack/AMI: No Hx Congestive Heart Failure: No Hx Diabetes: No Hx Deep Vein Thrombosis: Yes Hx GERD: Yes Hx Asthma: No Hx COPD: No Hx HIV: No Additional medical history: DVT RL- ON ELIQUIS,NEUROPATHY - Surgical History Hx Coronary Stent: No Hx Open Heart Surgery: No Hx Pacemaker: No Hx Internal Defibrillator: No Hx Cholecystectomy: No Hx Appendectomy: No Hx Breast Surgery: No Additional Surgical History: RT LEG DVT AND CLOT REMOVAL - Social History Smoking Status: Current Every Day Smoker - Medications Home Medications: Home Medications Medication Instructions Recorded Confirmed Last Taken Type Clopidogrel [Plavix] 75 mg PO QDAY #30 tablet 04/25/19 Unknown Rx Apixaban [Eliquis] 5 mg PO BID #60 05/26/20 Unknown Rx Gabapentin 600 mg PO TID #90 capsule 08/07/20 Unknown Rx ED Physical Exam - General Limitations: No Limitations General appearance: alert, in no apparent distress - Head Head exam: Present: atraumatic, normocephalic - Eye Eye exam: Present: normal appearance. Absent: conjunctival injection - Neck Neck exam: Present: normal inspection - Respiratory Respiratory exam: Absent: respiratory distress - Cardiovascular Cardiovascular Exam: Present: regular rate - GI/Abdominal GI/Abdominal exam: Absent: distended - Extremities Exam Extremities exam: Absent: normal inspection - Expanded Upper Extremity Exam Left Hand Wrist exam: Present: laceration Hand L/R Front: 1 - Positive: laceration. Negative: avulsion Vascular: Present: normal capillary refill, radial pulse. Absent: vascular compromise, Pallo - Back Exam Back exam: Present: normal inspection - Neurological Exam Neurological exam: Present: alert, oriented X3 - Psychiatric Psychiatric exam: Present: normal affect, normal mood - Skin Skin exam: Present: warm, dry, normal color ED Course Vital Signs 04/23/22 04/23/22 09:03 10:54 Temperature 98.5 F Pulse Rate 74 Respiratory 18 17 Rate Blood Pressure 139/93 O2 Sat by Pulse 98 99 Oximetry - Laceration /Wound Repair Left Finger Wound Location: upper extremity (left thumb) Wound Length (cm): 2 Wound's Depth, Shape: superficial, stellate Wound Explored: clean Irrigated w/ Saline (ccs): 80 Betadine Prep?: No Anesthesia: 1% Lidocaine (digital block) Volume Anesthetic (ccs): 4 Wound Repaired With: sutures Suture Size/Type: 3:0 (vicryl) Number of Sutures: 5 Layer Closure?: No Sterile Dressing Applied?: Yes Progress: patient tolerated well. ED Medical Decision Making - Medical Decision Making 66 yo black male with no pmh presents to ed for evaluation of left thumb laceration. He states that a piece of metal fell onto his thumb and cut him. Minimal bleeding noted. Left thumb laceration repaired per my procedure note. Tdap updated. Patient advised to monitor for signs of infection and return to ed if any noted. He verbalized understanding of and agreement with plan of care. Critical care attestation.: If time is entered above; I have spent that time in minutes in the direct care of this critically ill patient, excluding procedure time. ED Disposition Clinical Impression: Thumb laceration Qualifiers: Encounter type: initial encounter Damage to nail status: without damage Foreign body presence: without foreign body Laterality: left Qualified Code(s): S61.012A - Laceration without foreign body of left thumb without damage to nail, initial encounter Disposition: HOME / SELF CARE / HOMELESS Is pt being admited?: No Does the pt Need Aspirin: No Condition: Stable Instructions: Laceration Care, Adult, [id number], Sutured Wound Care, [id number] Additional Instructions: Keep stitches in and they will dissolve in the next 2-1/2 to 3 weeks. Monitor for signs of infection, and if you develop fever, swelling, drainage, or yellow streaking to area return to the emergency department immediately for further evaluation. Follow-up with primary care provider as needed Referrals: HOMAR CHAPMAN MD [Primary Care Provider] - 3-5 Days Forms: Work/School Release Form(ED) Time of Disposition: 11:59
== END 2022-04-23 12:21 | disposition home or self-care (01) ==
LOC: ED 08:44
DX: S61.012A Laceration without foreign body of left thumb without damage to nail, initial encounter (principal); I10 Essential (primary) hypertension; F17.200 Nicotine dependence, unspecified, uncomplicated; Z79.899 Other long term (current) drug therapy; W22.8XXA Striking against or struck by other objects, initial encounter; Y93.89 Activity, other specified; Y92.89 Other specified places as the place of occurrence of the external cause; Y99.8 Other external cause status
CPT/HCPCS: 12001; 90471; 90715; 99282; J3490